=== PATIENT | female | born 1930 | race Caucasian/White ===

== ENCOUNTER → 2016-09-20 | Outpatient (CLI) | payer MEDICARE, OTHER ==
[~2016-09-20] MED LIST: ADAL20KI; CIPRPOW8 PO; CYCL0.05 EACHEYE; DOXA2TAB; DOXE1CAP; FEBU80TA; FOLI400T34 PO; HYDR-1421; LEVO125T66; LIDO5DIS40; LUTE15CA; MOME220A IN; OMEP40CA33; POLYSOL5 EACHEYE; PREG75CA PO; Patanol EACHEYE; SITA100T7; TEMA30CA5; TRADJENTA; ZOLP12.52 PO; plaquenil PO
[2016-09-20 16:49] LABS: Basophils # (auto) 0 uL; Basophils % (auto) 0.5 % (0.0-2.0); DEFINITIVE VIEW TRANSMISSION; Eosinophils # (auto) 0.1 uL; Eosinophils % (auto) 1.5 % (0.0-7.0); Hematocrit 36.1 % (36.0-46.0); Hemoglobin 11.4 g/dL (12.2-16.2); Lymphocytes # (auto) 1.1 uL; Lymphocytes % (auto) 23.8 % (10.0-50.0); Mean Corpuscular Hemoglobin 32.9 pg (28.0-32.0); Mean Corpuscular Hgb Conc. 31.7 g/dL (32.0-36.0); Mean Corpuscular Volume 103.6 fL (80.0-100.0); Mean Platelet Volume 6.8 fL (7.4-10.4); Monocytes # (auto) 0.3 uL; Monocytes % (auto) 6.8 % (0.0-12.0); Neutrophils # (auto) 3.3 uL; Neutrophils % (auto) 67.4 % (37.0-80.0); Platelet Count (auto) 204 10^3/uL (140-450); White Blood Cell 4.8 10^3/uL (4.4-10.8)
[2016-09-20 17:03] LABS: BUN/Creatinine Ratio 27.4; Bilirubin, Total 0.4 mg/dL (0.2-1.0); Potassium 4.2 mmol/L (3.5-5.1); Total Protein 6.8 g/dL (6.4-8.2)
== END | disposition home or self-care (01) ==
LOC: LAB 15:07
PROVIDERS: ATTEND Internal Medicine Cardiovascular Disease
DX: M06.9 Rheumatoid arthritis, unspecified (principal); M25.50 Pain in unspecified joint; D64.9 Anemia, unspecified; I10 Essential (primary) hypertension; Z79.899 Other long term (current) drug therapy
CPT/HCPCS: 36415; 80053; 83036; 85025; 85652; 86141

== ENCOUNTER → 2016-10-06 | Outpatient (CLI) | payer MEDICARE, OTHER | END | disposition home or self-care (01) | LOC: Rad HDHVI 14:03 | PROVIDERS: ATTEND Internal Medicine Cardiovascular Disease | DX: I11.0 Hypertensive heart disease with heart failure (principal); I34.2 Nonrheumatic mitral (valve) stenosis; I35.0 Nonrheumatic aortic (valve) stenosis | CPT/HCPCS: 93306 ==

== ENCOUNTER → 2017-01-02 | Outpatient (CLI) | payer MEDICARE, OTHER ==
[2017-01-02 15:35] VITALS: BP 155/57
[2017-01-02 16:55] VITALS: BP 143/50
== END | disposition home or self-care (01) ==
LOC: CHF HDHVI 15:32
PROVIDERS: ATTEND Internal Medicine Cardiovascular Disease
DX: I50.9 Heart failure, unspecified (principal); R07.9 Chest pain, unspecified; R29.6 Repeated falls
CPT/HCPCS: 93005; G0463

== ENCOUNTER → 2017-01-23 | Outpatient (CLI) | payer MEDICARE, OTHER | END | disposition home or self-care (01) | LOC: Rad HDHVI 15:54 | PROVIDERS: ATTEND Internal Medicine Cardiovascular Disease | DX: R51 Headache (principal) | CPT/HCPCS: 70450 ==

== ENCOUNTER → 2017-05-01 | Outpatient (CLI) | payer MEDICARE, OTHER ==
[2017-05-01 16:13] LABS: Basophils # (auto) 0 uL; Basophils % (auto) 0.3 % (0.0-2.0); CONDITION Y; DEFINITIVE SEE PRINTOUT; Eosinophils # (auto) 0 uL; Eosinophils % (auto) 0.5 % (0.0-7.0); Hematocrit 32.8 % (36.0-46.0); Hemoglobin 10.7 g/dL (12.2-16.2); Lymphocytes # (auto) 1.1 uL; Lymphocytes % (auto) 22.3 % (10.0-50.0); Mean Corpuscular Hemoglobin 34.6 pg (28.0-32.0); Mean Corpuscular Hgb Conc. 32.7 g/dL (32.0-36.0); Mean Corpuscular Volume 105.9 fL (80.0-100.0); Mean Platelet Volume 7.1 fL (7.4-10.4); Monocytes # (auto) 0.3 uL; Monocytes % (auto) 5.9 % (0.0-12.0); Neutrophils # (auto) 3.4 uL; Platelet Count (auto) 196 10^3/uL (140-450); Red Cell Distribution Width 16.5 % (11.6-16.0); White Blood Cell 4.8 10^3/uL (4.4-10.8)
[2017-05-01 16:32] LABS: Albumin 3.8 g/dL (3.4-5.0); BUN/Creatinine Ratio 28.8; Bilirubin, Total 0.4 mg/dL (0.2-1.0); Calcium 9.9 mg/dL (8.5-10.1); Potassium 5.1 mmol/L (3.5-5.1); Total Protein 6.7 g/dL (6.4-8.2)
== END | disposition home or self-care (01) ==
LOC: LAB 14:39
PROVIDERS: ATTEND Internal Medicine Cardiovascular Disease
DX: I25.10 Atherosclerotic heart disease of native coronary artery without angina pectoris (principal); I13.0 Hypertensive heart and chronic kidney disease with heart failure and stage 1 through stage 4 chronic kidney disease, or unspecified chronic kidney disease; I50.30 Unspecified diastolic (congestive) heart failure; N18.9 Chronic kidney disease, unspecified; R70.0 Elevated erythrocyte sedimentation rate; D64.9 Anemia, unspecified
CPT/HCPCS: 36415; 80053; 85025; 85652; 86141

== ENCOUNTER → 2017-06-20 | Outpatient (CLI) | payer MEDICARE, OTHER ==
[2017-06-20 16:28] LABS: Urine Bilirubin Negative (Negative); Urine Blood Negative /uL (Negative); Urine Color Colorless (Yellow); Urine Glucose Normal (Normal); Urine Ketone Negative (Negative); Urine Nitrite Negative (Negative); Urine Urobilinogen Normal (Negative)
[2017-06-20 16:35] LABS: Eosinophils # (auto) 0.1 uL; Hemoglobin 11.4 g/dL (12.2-16.2); Lymphocytes # (auto) 1.5 uL; Mean Platelet Volume 7.3 fL (6.9-10.8); Nucleated Red Blood Cells % 0.3 %
[2017-06-20 16:37] LABS: Basophils # (auto) 0.1 uL; Basophils % (auto) 0.8 % (0.0-2.0); Calcium 9.8 mg/dL (8.5-10.1); Hematocrit 34.4 % (36.0-46.0); Lymphocytes % (auto) 23.5 % (10.0-50.0); Mean Corpuscular Hemoglobin 35.5 pg (28.0-32.0); Mean Corpuscular Volume 107.4 fL (80.0-100.0); Monocytes # (auto) 0.3 uL; Monocytes % (auto) 5.3 % (0.0-12.0); Neutrophils # (auto) 4.4 uL; Neutrophils % (auto) 69.4 % (37.0-80.0); Platelet Count (auto) 150 10^3/uL (140-450); Potassium 4.8 mmol/L (3.5-5.1); Red Cell Distribution Width 15.4 % (11.8-14.3); White Blood Cell 6.3 10^3/uL (4.4-10.8)
[2017-06-20 19:39] LABS: Macrocytosis Moderate; Platelet Estimate Adequate
== END | disposition home or self-care (01) ==
LOC: Rad HDHVI 10:05
PROVIDERS: ATTEND Internal Medicine Cardiovascular Disease
DX: I10 Essential (primary) hypertension (principal); I25.10 Atherosclerotic heart disease of native coronary artery without angina pectoris; D64.9 Anemia, unspecified; R70.0 Elevated erythrocyte sedimentation rate; N39.0 Urinary tract infection, site not specified
CPT/HCPCS: 36415; 80048; 81003; 85025; 85652; 86141; 87086; 93306

== ENCOUNTER → 2017-07-12 | Outpatient (CLI) | payer MEDICARE, OTHER ==
[2017-07-12 13:29] LABS: Albumin 3.7 g/dL (3.4-5.0); Calcium 9.7 mg/dL (8.5-10.1)
[2017-07-12 13:37] LABS: BUN/Creatinine Ratio 53.2; Bilirubin, Total 0.3 mg/dL (0.2-1.0); Total Protein 6.7 g/dL (6.4-8.2)
[2017-07-12 14:16] LABS: Potassium 6.1 mmol/L (3.5-5.1)
== END | disposition home or self-care (01) ==
LOC: LAB 12:02
DX: I13.0 Hypertensive heart and chronic kidney disease with heart failure and stage 1 through stage 4 chronic kidney disease, or unspecified chronic kidney disease (principal); I50.9 Heart failure, unspecified; N18.9 Chronic kidney disease, unspecified; M71.9 Bursopathy, unspecified
CPT/HCPCS: 36415; 80053

== ENCOUNTER → 2017-07-13 | Outpatient (CLI) | payer MEDICARE, OTHER ==
[2017-07-13 11:55] VITALS: BP 120/63
== END | disposition home or self-care (01) ==
LOC: CHF HDHVI 11:54
PROVIDERS: ATTEND Internal Medicine Cardiovascular Disease
DX: E87.6 Hypokalemia (principal); R94.4 Abnormal results of kidney function studies
CPT/HCPCS: 36415; 82565; 84132; 84520; G0463

== ENCOUNTER → 2017-07-14 | Outpatient (CLI) | payer MEDICARE, OTHER ==
[~2017-07-14] MED LIST changes: +FUROSEMIDE 40 MG/4 ML VIAL IV ONE; +FUROSEMIDE 40 MG/4 ML VIAL ONE; +SODIUM CHLORIDE 0.9% 500 ML IV ONE
[2017-07-14 14:42] VITALS: BP 162/73
== END ==
LOC: CHF HDHVI 12:27
PROVIDERS: ATTEND Internal Medicine Cardiovascular Disease
DX: I50.9 Heart failure, unspecified (principal); N17.9 Acute kidney failure, unspecified
CPT/HCPCS: 96361; 96374; G0463; J1940; 96360; 96366; 96375

== ENCOUNTER → 2017-07-17 | Outpatient (CLI) | payer MEDICARE, OTHER ==
[~2017-07-17] MED LIST changes: -FUROSEMIDE 40 MG/4 ML VIAL IV ONE; -FUROSEMIDE 40 MG/4 ML VIAL ONE; -SODIUM CHLORIDE 0.9% 500 ML IV ONE
[2017-07-17 14:30] VITALS: BP 154/64
[2017-07-17 16:29] LABS: Basophils # (auto) 0 uL; Basophils % (auto) 0.6 % (0.0-2.0); Eosinophils # (auto) 0 uL; Eosinophils % (auto) 0.4 % (0.0-7.0); Hemoglobin 10.1 g/dL (12.2-16.2); Mean Corpuscular Hemoglobin 34.8 pg (28.0-32.0); Mean Corpuscular Hgb Conc. 32.6 g/dL (32.0-36.0); Mean Corpuscular Volume 106.7 fL (80.0-100.0); Monocytes # (auto) 0.4 uL; Monocytes % (auto) 8.1 % (0.0-12.0); Neutrophils # (auto) 3.7 uL; Neutrophils % (auto) 71.9 % (37.0-80.0); Nucleated Red Blood Cells % 0.2 %; Platelet Count (auto) 138 10^3/uL (140-450); Red Blood Cells 2.91 10^6/uL (4.0-5.20); Red Cell Distribution Width 15.8 % (11.8-14.3); White Blood Cell 5.2 10^3/uL (4.4-10.8)
[2017-07-17 16:42] LABS: Potassium 5.6 mmol/L (3.5-5.1)
== END | disposition home or self-care (01) ==
LOC: CHF HDHVI 14:31
PROVIDERS: ATTEND Internal Medicine Cardiovascular Disease
DX: I11.0 Hypertensive heart disease with heart failure (principal); I50.9 Heart failure, unspecified; D64.9 Anemia, unspecified; E87.5 Hyperkalemia
CPT/HCPCS: 36415; 80048; 85025; 93005; G0463

== ENCOUNTER → 2017-07-18 | Outpatient (CLI) | payer MEDICARE, OTHER ==
[~2017-07-18] VITALS: Ht 30.5 cm; Wt 0.5 kg
[~2017-07-18] MED LIST changes: +SODIUM POLYSTYRENE SULF 15GM/60ML SUSP ONE; +SODIUM POLYSTYRENE SULF 15GM/60ML SUSP PO ONE
[2017-07-18 10:40] VITALS: BP 129/60
[2017-07-18 11:00] VITALS: BP 129/59
== END | disposition home or self-care (01) ==
LOC: CHF HDHVI 10:33
PROVIDERS: ATTEND Internal Medicine Cardiovascular Disease
DX: I50.9 Heart failure, unspecified (principal)
CPT/HCPCS: G0463

== ENCOUNTER → 2017-07-19 | Outpatient (CLI) | payer MEDICARE, OTHER ==
[~2017-07-19] MED LIST changes: -SODIUM POLYSTYRENE SULF 15GM/60ML SUSP ONE; -SODIUM POLYSTYRENE SULF 15GM/60ML SUSP PO ONE
[2017-07-19 14:40] VITALS: BP 170/71
[2017-07-19 15:05] VITALS: BP 163/82
[2017-07-19 16:06] LABS: Potassium 4.7 mmol/L (3.5-5.1)
== END | disposition home or self-care (01) ==
LOC: CHF HDHVI 14:52
PROVIDERS: ATTEND Internal Medicine Cardiovascular Disease
DX: E87.6 Hypokalemia (principal); R94.4 Abnormal results of kidney function studies
CPT/HCPCS: 36415; 82565; 84132; 84520; G0463

== ENCOUNTER → 2017-08-14 | Outpatient (CLI) | payer MEDICARE, OTHER | END | disposition home or self-care (01) | LOC: CHF HDHVI 14:39 | PROVIDERS: ATTEND Internal Medicine Cardiovascular Disease | DX: G93.89 Other specified disorders of brain (principal); I67.2 Cerebral atherosclerosis; G31.89 Other specified degenerative diseases of nervous system | CPT/HCPCS: 70450 ==

== ENCOUNTER → 2017-09-13 | Outpatient (CLI) | payer MEDICARE, OTHER ==
[~2017-09-13] MED LIST changes: -LIDO5DIS40; +LIDO5DIS7
[2017-09-13 12:51] LABS: Basophils # (auto) 0 uL; Eosinophils # (auto) 0 uL; Eosinophils % (auto) 0.5 % (0.0-7.0); Lymphocytes # (auto) 0.9 uL; Lymphocytes % (auto) 17.3 % (10.0-50.0); Monocytes # (auto) 0.3 uL
[2017-09-13 12:53] LABS: Basophils % (auto) 0.5 % (0.0-2.0); Hematocrit 31.7 % (36.0-46.0); Hemoglobin 10.6 g/dL (12.2-16.2); Mean Corpuscular Hemoglobin 36.1 pg (28.0-32.0); Mean Corpuscular Hgb Conc. 33.3 g/dL (32.0-36.0); Mean Corpuscular Volume 108.3 fL (80.0-100.0); Monocytes % (auto) 5.2 % (0.0-12.0); Neutrophils % (auto) 76.5 % (37.0-80.0); Nucleated Red Blood Cells % 0.2 %; Platelet Count (auto) 135 10^3/uL (140-450); Red Blood Cells 2.92 10^6/uL (4.0-5.20); Red Cell Distribution Width 16.8 % (11.8-14.3); White Blood Cell 5.2 10^3/uL (4.4-10.8)
[2017-09-13 15:09] LABS: Albumin 3.9 g/dL (3.4-5.0); BUN/Creatinine Ratio 27.9; Bilirubin, Total 0.4 mg/dL (0.2-1.0); CRP High Sensitivity 0.33 mg/dL (< 0.3); Calcium 9.8 mg/dL (8.5-10.1); Potassium 4.9 mmol/L (3.5-5.1); Total Protein 6.8 g/dL (6.4-8.2)
== END | disposition home or self-care (01) ==
LOC: LAB 12:05
DX: I10 Essential (primary) hypertension (principal); M06.9 Rheumatoid arthritis, unspecified; E78.00 Pure hypercholesterolemia, unspecified; I70.0 Atherosclerosis of aorta; D64.9 Anemia, unspecified; Z79.899 Other long term (current) drug therapy
CPT/HCPCS: 36415; 80053; 85025; 85652; 86141

== ENCOUNTER → 2017-09-13 | Outpatient (CLI) | payer MEDICARE, OTHER ==
[~2017-09-13] MED LIST changes: +FUROSEMIDE 100 MG/10ML VIAL IV ONE; +FUROSEMIDE 40 MG/4 ML VIAL ONE; +POTASSIUM CHL 20 Meq TABLET PO ONE
[2017-09-13 16:53] VITALS: BP 132/60
== END | disposition home or self-care (01) ==
LOC: CHF HDHVI 16:26
PROVIDERS: ATTEND Internal Medicine Cardiovascular Disease
DX: I50.9 Heart failure, unspecified (principal); I25.10 Atherosclerotic heart disease of native coronary artery without angina pectoris
CPT/HCPCS: 96374; G0463; J1940

== ENCOUNTER → 2017-10-09 | Outpatient (CLI) | payer MEDICARE, OTHER ==
[~2017-10-09] MED LIST changes: +CYANOCOBALAMIN (B-12) 1000 MCG/1 ML VIAL IM ONE; +CYANOCOBALAMIN (B-12) 1000 MCG/1 ML VIAL ONE; -FUROSEMIDE 100 MG/10ML VIAL IV ONE; +FUROSEMIDE 20 MG/2 ML VIAL ONE
[2017-10-09 15:25] VITALS: BP 175/72
[2017-10-09] MEDS: FUROSEMIDE 20 MG/2 ML VIAL IV SCH (15:53)
[2017-10-09 16:30] VITALS: BP 185/78
== END | disposition home or self-care (01) ==
LOC: CHF HDHVI 15:24
PROVIDERS: ATTEND Internal Medicine Cardiovascular Disease
DX: I50.9 Heart failure, unspecified (principal); R60.0 Localized edema; R53.81 Other malaise; R53.83 Other fatigue; R53.1 Weakness
CPT/HCPCS: 96372; 96374; G0463; J1940; J3420

== ENCOUNTER → 2017-12-11 | Outpatient (CLI) | payer MEDICARE, OTHER ==
[~2017-12-11] MED LIST changes: -FUROSEMIDE 20 MG/2 ML VIAL ONE; -FUROSEMIDE 40 MG/4 ML VIAL ONE; -POTASSIUM CHL 20 Meq TABLET PO ONE
[2017-12-11 12:50] VITALS: BP 145/88
[2017-12-11 13:50] VITALS: BP 145/88
[2017-12-11 15:39] LABS: Basophils # (auto) 0 uL; Basophils % (auto) 0.5 % (0.0-2.0); Eosinophils # (auto) 0 uL; Lymphocytes # (auto) 0.7 uL; Mean Corpuscular Volume 106.9 fL (80.0-100.0); Neutrophils % (auto) 78.9 % (37.0-80.0)
[2017-12-11 15:41] LABS: Eosinophils % (auto) 0.9 % (0.0-7.0); Hematocrit 32.4 % (36.0-46.0); Hemoglobin 10.6 g/dL (12.2-16.2); Lymphocytes % (auto) 13.6 % (10.0-50.0); Mean Corpuscular Hemoglobin 35.1 pg (28.0-32.0); Mean Corpuscular Hgb Conc. 32.8 g/dL (32.0-36.0); Monocytes # (auto) 0.3 uL; Monocytes % (auto) 6.1 % (0.0-12.0); Neutrophils # (auto) 4.1 uL; Nucleated Red Blood Cells % 0.2 %; Platelet Count (auto) 167 10^3/uL (140-450); Red Blood Cells 3.03 10^6/uL (4.0-5.20); Red Cell Distribution Width 15.3 % (11.8-14.3); White Blood Cell 5.2 10^3/uL (4.4-10.8)
[2017-12-11 15:42] LABS: BUN/Creatinine Ratio 30.7; Calcium 9.9 mg/dL (8.5-10.1); Potassium 4.1 mmol/L (3.5-5.1); Urine Bacteria NONE SEEN /hpf (None Seen); Urine Blood Negative /uL (Negative); Urine Specific Gravity 1.019 (1.001-1.035); Urine WBC 44 /hpf (0 - 5)
[2017-12-11 15:59] VITALS: BP 153/64
== END | disposition home or self-care (01) ==
LOC: Rad HDHVI 12:19
PROVIDERS: ATTEND Internal Medicine Cardiovascular Disease
DX: D53.9 Nutritional anemia, unspecified (principal); R31.9 Hematuria, unspecified; I10 Essential (primary) hypertension; G31.9 Degenerative disease of nervous system, unspecified; G93.89 Other specified disorders of brain; I70.90 Unspecified atherosclerosis; M25.542 Pain in joints of left hand; Z91.81 History of falling
CPT/HCPCS: 36415; 70450; 73060; 80048; 81001; 83735; 85025; 87086; 96372; G0463; J3420

== ENCOUNTER → 2017-12-20 | Outpatient (CLI) | payer MEDICARE, OTHER ==
[~2017-12-20] MED LIST changes: -CYANOCOBALAMIN (B-12) 1000 MCG/1 ML VIAL IM ONE; -CYANOCOBALAMIN (B-12) 1000 MCG/1 ML VIAL ONE
[2017-12-20 14:50] VITALS: BP 134/64
[2017-12-20 15:10] VITALS: BP 145/71
== END | disposition home or self-care (01) ==
LOC: CHF HDHVI 14:53
PROVIDERS: ATTEND Internal Medicine Cardiovascular Disease
DX: Z48.02 Encounter for removal of sutures (principal); S01.81XA Laceration without foreign body of other part of head, initial encounter; X58.XXXA Exposure to other specified factors, initial encounter; Y93.89 Activity, other specified; Y92.89 Other specified places as the place of occurrence of the external cause; Y99.8 Other external cause status
CPT/HCPCS: G0463

== ENCOUNTER → 2018-01-26 | Outpatient (CLI) | payer MEDICARE, OTHER ==
[2018-01-26 16:21] LABS: Potassium 4.2 mmol/L (3.5-5.1)
[2018-01-26 17:09] LABS: BUN/Creatinine Ratio 47.2; Calcium 10.3 mg/dL (8.5-10.1)
== END | disposition home or self-care (01) ==
LOC: LAB 14:13
PROVIDERS: ATTEND Internal Medicine Cardiovascular Disease
DX: I10 Essential (primary) hypertension (principal); E78.00 Pure hypercholesterolemia, unspecified; M06.9 Rheumatoid arthritis, unspecified; Z79.899 Other long term (current) drug therapy
CPT/HCPCS: 36415; 80048

== ENCOUNTER → 2018-02-01 | Outpatient (CLI) | payer MEDICARE, OTHER ==
[2018-02-01 14:00] VITALS: BP 123/76
[2018-02-01 16:07] LABS: Potassium 4.4 mmol/L (3.5-5.1)
== END | disposition home or self-care (01) ==
LOC: CHF HDHVI 13:54
PROVIDERS: ATTEND Internal Medicine Cardiovascular Disease
DX: I13.0 Hypertensive heart and chronic kidney disease with heart failure and stage 1 through stage 4 chronic kidney disease, or unspecified chronic kidney disease (principal); N18.9 Chronic kidney disease, unspecified; I50.23 Acute on chronic systolic (congestive) heart failure; E78.00 Pure hypercholesterolemia, unspecified; M06.9 Rheumatoid arthritis, unspecified; Z79.899 Other long term (current) drug therapy
CPT/HCPCS: 36415; 82565; 84132; 84520; G0463

== ENCOUNTER → 2018-03-06 | Outpatient (CLI) | payer MEDICARE, OTHER ==
[2018-03-06 16:10] LABS: Albumin 3.2 g/dL (3.4-5.0); Potassium 4.2 mmol/L (3.5-5.1)
[2018-03-06 16:13] LABS: BUN/Creatinine Ratio 39.9; Bilirubin, Total 0.5 mg/dL (0.2-1.0); Total Protein 6.2 g/dL (6.4-8.2)
[2018-03-06 16:28] LABS: Basophils # (auto) 0 uL; Eosinophils # (auto) 0 uL; Hemoglobin 10.1 g/dL (12.2-16.2); Lymphocytes # (auto) 0.7 uL; Monocytes # (auto) 0.3 uL; Neutrophils # (auto) 3.1 uL; White Blood Cell 4.2 10^3/uL (4.4-10.8)
[2018-03-06 16:30] LABS: Basophils % (auto) 0.4 % (0.0-2.0); Eosinophils % (auto) 0.4 % (0.0-7.0); Hematocrit 29.6 % (36.0-46.0); Lymphocytes % (auto) 16.5 % (10.0-50.0); Mean Corpuscular Hemoglobin 36.2 pg (28.0-32.0); Mean Corpuscular Hgb Conc. 34.1 g/dL (32.0-36.0); Mean Corpuscular Volume 106.1 fL (80.0-100.0); Monocytes % (auto) 7.8 % (0.0-12.0); Neutrophils % (auto) 74.9 % (37.0-80.0); Nucleated Red Blood Cells % 0.2 %; Platelet Count (auto) 148 10^3/uL (140-450); Red Blood Cells 2.79 10^6/uL (4.0-5.20); Red Cell Distribution Width 15.6 % (11.8-14.3)
[2018-03-06 16:57] LABS: Urine Blood Negative /uL (Negative); Urine Specific Gravity 1.012 (1.001-1.035)
== END | disposition home or self-care (01) ==
LOC: LAB 14:04
PROVIDERS: ATTEND Internal Medicine Cardiovascular Disease
DX: I13.0 Hypertensive heart and chronic kidney disease with heart failure and stage 1 through stage 4 chronic kidney disease, or unspecified chronic kidney disease (principal); I50.23 Acute on chronic systolic (congestive) heart failure; N18.9 Chronic kidney disease, unspecified; E78.00 Pure hypercholesterolemia, unspecified; N39.0 Urinary tract infection, site not specified; D64.9 Anemia, unspecified
CPT/HCPCS: 36415; 80053; 81003; 85025; 87086

== ENCOUNTER → 2018-05-04 | Outpatient (CLI) | payer MEDICARE, OTHER ==
[2018-05-04 16:18] LABS: Basophils # (auto) 0 uL; Eosinophils # (auto) 0 uL
[2018-05-04 16:20] LABS: Albumin 3.7 g/dL (3.4-5.0); BUN/Creatinine Ratio 42.2; Basophils % (auto) 0.8 % (0.0-2.0); Bilirubin, Total 0.4 mg/dL (0.2-1.0); Calcium 9.6 mg/dL (8.5-10.1); Eosinophils % (auto) 0.7 % (0.0-7.0); Hematocrit 29.7 % (36.0-46.0); Lymphocytes # (auto) 1.3 uL; Lymphocytes % (auto) 31.5 % (10.0-50.0); Mean Corpuscular Hemoglobin 35.9 pg (28.0-32.0); Mean Corpuscular Hgb Conc. 33.5 g/dL (32.0-36.0); Monocytes # (auto) 0.2 uL; Monocytes % (auto) 6.1 % (0.0-12.0); Neutrophils # (auto) 2.4 uL; Neutrophils % (auto) 60.9 % (37.0-80.0); Nucleated Red Blood Cells % 0.6 %; Platelet Count (auto) 145 10^3/uL (140-450); Potassium 4.2 mmol/L (3.5-5.1); Red Blood Cells 2.78 10^6/uL (4.0-5.20); Red Cell Distribution Width 16.1 % (11.8-14.3); Total Protein 6.4 g/dL (6.4-8.2)
== END | disposition home or self-care (01) ==
LOC: LAB 11:29
PROVIDERS: ATTEND Internal Medicine Cardiovascular Disease
DX: D64.9 Anemia, unspecified (principal); I10 Essential (primary) hypertension
CPT/HCPCS: 36415; 80053; 85025

== ENCOUNTER → 2018-05-09 | Outpatient (CLI) | payer MEDICARE, OTHER ==
[2018-05-09 13:45] VITALS: BP 140/76
[2018-05-09 14:00] VITALS: BP 174/66
[2018-05-09 16:46] LABS: Basophils # (auto) 0 uL; Eosinophils # (auto) 0 uL; Eosinophils % (auto) 0.8 % (0.0-7.0); Hemoglobin 10.9 g/dL (12.2-16.2); Mean Corpuscular Volume 106.9 fL (80.0-100.0)
[2018-05-09 16:50] LABS: Basophils % (auto) 0.4 % (0.0-2.0); Hematocrit 32.7 % (36.0-46.0); Lymphocytes % (auto) 24.7 % (10.0-50.0); Mean Corpuscular Hemoglobin 35.6 pg (28.0-32.0); Mean Corpuscular Hgb Conc. 33.3 g/dL (32.0-36.0); Monocytes # (auto) 0.2 uL; Monocytes % (auto) 6.5 % (0.0-12.0); Neutrophils # (auto) 2.6 uL; Neutrophils % (auto) 67.6 % (37.0-80.0); Nucleated Red Blood Cells % 0.1 %; Platelet Count (auto) 141 10^3/uL (140-450); Red Blood Cells 3.06 10^6/uL (4.0-5.20); Red Cell Distribution Width 16.2 % (11.8-14.3); White Blood Cell 3.8 10^3/uL (4.4-10.8)
[2018-05-09 16:55] LABS: BUN/Creatinine Ratio 35.3; Calcium 10.3 mg/dL (8.5-10.1); Potassium 4.3 mmol/L (3.5-5.1)
== END | disposition home or self-care (01) ==
LOC: CHF HDHVI 13:36
PROVIDERS: ATTEND Internal Medicine Cardiovascular Disease
DX: D64.9 Anemia, unspecified (principal); I13.0 Hypertensive heart and chronic kidney disease with heart failure and stage 1 through stage 4 chronic kidney disease, or unspecified chronic kidney disease; N18.9 Chronic kidney disease, unspecified; I50.9 Heart failure, unspecified; R60.0 Localized edema
CPT/HCPCS: 36415; 80048; 85025; G0463

== ENCOUNTER → 2018-07-06 | Outpatient (CLI) | payer MEDICARE, OTHER | END | disposition home or self-care (01) | LOC: Rad HDHVI 12:59 | PROVIDERS: ATTEND Internal Medicine Cardiovascular Disease | DX: M47.892 Other spondylosis, cervical region (principal) | CPT/HCPCS: 72125 ==

== ENCOUNTER → 2018-07-10 | Outpatient (CLI) | payer MEDICARE, OTHER ==
[2018-07-10 16:08] LABS: Urine Blood Negative /uL (Negative); Urine Specific Gravity 1.012 (1.001-1.035)
== END | disposition home or self-care (01) ==
LOC: LAB 14:30
PROVIDERS: ATTEND Internal Medicine Cardiovascular Disease
DX: N39.0 Urinary tract infection, site not specified (principal)
CPT/HCPCS: 81003; 87086

== ENCOUNTER → 2018-08-13 | Outpatient (CLI) | payer MEDICARE, OTHER ==
[2018-08-13 16:06] LABS: Urine Blood Negative /uL (Negative); Urine Specific Gravity 1.022 (1.001-1.035)
[2018-08-13 16:19] LABS: Calcium 10.1 mg/dL (8.5-10.1); Potassium 4.6 mmol/L (3.5-5.1)
[2018-08-13 16:21] LABS: BUN/Creatinine Ratio 52.8
[2018-08-13 16:48] LABS: Basophils # (auto) 0 uL; Eosinophils # (auto) 0 uL; Hemoglobin 12.2 g/dL (12.2-16.2); Lymphocytes # (auto) 0.8 uL; Mean Corpuscular Hgb Conc. 32.9 g/dL (32.0-36.0); Monocytes # (auto) 0.3 uL; Red Blood Cells 3.42 10^6/uL (4.0-5.20)
[2018-08-13 16:50] LABS: Basophils % (auto) 0.3 % (0.0-2.0); Eosinophils % (auto) 0.3 % (0.0-7.0); Mean Corpuscular Hemoglobin 35.6 pg (28.0-32.0); Mean Corpuscular Volume 108.2 fL (80.0-100.0); Monocytes % (auto) 5.8 % (0.0-12.0); Neutrophils # (auto) 4.7 uL; Neutrophils % (auto) 80.6 % (37.0-80.0); Nucleated Red Blood Cells % 0.5 %; Platelet Count (auto) 165 10^3/uL (140-450); Red Cell Distribution Width 15.6 % (11.8-14.3); White Blood Cell 5.9 10^3/uL (4.4-10.8)
== END | disposition home or self-care (01) ==
LOC: LABCORP 12:13
PROVIDERS: ATTEND Internal Medicine Cardiovascular Disease
DX: I11.0 Hypertensive heart disease with heart failure (principal); I50.23 Acute on chronic systolic (congestive) heart failure; D64.9 Anemia, unspecified; E11.9 Type 2 diabetes mellitus without complications; N39.0 Urinary tract infection, site not specified
CPT/HCPCS: 36415; 80048; 81003; 83036; 83880; 85025; 87086

== ENCOUNTER 2018-09-12 13:25 | Inpatient (IN) | payer MEDICARE, OTHER | END 2018-09-21 16:35 | disposition home or self-care (01) | LOC: OVERFLOW 09-13 00:44 → CENTRAL 09-15 18:13 → ER 13:25 | DX: S00.83XA Contusion of other part of head, initial encounter (principal); J18.9 Pneumonia, unspecified organism; J44.0 Chronic obstructive pulmonary disease with (acute) lower respiratory infection; E86.0 Dehydration; J20.8 Acute bronchitis due to other specified organisms; Z90.710 Acquired absence of both cervix and uterus; R53.1 Weakness; I10 Essential (primary) hypertension; N18.3 Chronic kidney disease, stage 3 (moderate); M06.9 Rheumatoid arthritis, unspecified; D64.9 Anemia, unspecified; G89.4 Chronic pain syndrome ==

== ENCOUNTER → 2018-10-01 | Outpatient (CLI) | payer MEDICARE, OTHER ==
[~2018-10-01] MED LIST changes: +GABA-339 PO; -LIDO5DIS7; +LIDO5DIS7 SUBD; -TEMA30CA5; +TEMA30CA5 PO
== END | disposition home or self-care (01) ==
LOC: Rad HDHVI 13:43
PROVIDERS: ATTEND Internal Medicine Cardiovascular Disease
DX: M11.262 Other chondrocalcinosis, left knee (principal); M77.32 Calcaneal spur, left foot; M19.072 Primary osteoarthritis, left ankle and foot; M17.12 Unilateral primary osteoarthritis, left knee; M79.89 Other specified soft tissue disorders; Z91.81 History of falling
CPT/HCPCS: 73562; 73610

== ENCOUNTER → 2018-10-17 | Outpatient (CLI) | payer MEDICARE, OTHER ==
[2018-10-17 16:03] LABS: Basophils # (auto) 0.1 uL; Basophils % (auto) 1.2 % (0.0-2.0); Eosinophils # (auto) 0.1 uL; Eosinophils % (auto) 1.4 % (0.0-7.0); Hemoglobin 12.3 g/dL (12.2-16.2); Mean Corpuscular Hemoglobin 34.8 pg (28.0-32.0); Monocytes # (auto) 0.4 uL; Neutrophils # (auto) 3.2 uL; White Blood Cell 4.7 10^3/uL (4.4-10.8)
[2018-10-17 16:04] LABS: Hematocrit 38.1 % (36.0-46.0); Lymphocytes % (auto) 21.4 % (10.0-50.0); Mean Corpuscular Hgb Conc. 32.2 g/dL (32.0-36.0); Mean Corpuscular Volume 108.3 fL (80.0-100.0); Monocytes % (auto) 7.9 % (0.0-12.0); Neutrophils % (auto) 68.1 % (37.0-80.0); Nucleated Red Blood Cells % 0.2 %; Platelet Count (auto) 150 10^3/uL (140-450); Red Blood Cells 3.52 10^6/uL (4.0-5.20); Red Cell Distribution Width 16.9 % (11.8-14.3)
[2018-10-17 16:15] LABS: BUN/Creatinine Ratio 39.6; Calcium 9.9 mg/dL (8.5-10.1); Potassium 3.3 mmol/L (3.5-5.1)
[2018-10-17 16:17] LABS: Bilirubin, Total 0.4 mg/dL (0.2-1.0); Total Protein 7.3 g/dL (6.4-8.2)
== END | disposition home or self-care (01) ==
LOC: LAB 11:47
PROVIDERS: ATTEND Internal Medicine Cardiovascular Disease
DX: D64.9 Anemia, unspecified (principal); I12.9 Hypertensive chronic kidney disease with stage 1 through stage 4 chronic kidney disease, or unspecified chronic kidney disease; E11.22 Type 2 diabetes mellitus with diabetic chronic kidney disease; N18.9 Chronic kidney disease, unspecified
CPT/HCPCS: 36415; 80053; 85025

== ENCOUNTER → 2018-10-30 | Outpatient (CLI) | payer MEDICARE, OTHER ==
[~2018-10-30] MED LIST changes: +CYANOCOBALAMIN (B-12) 1000 MCG/1 ML VIAL IM ONE; +CYANOCOBALAMIN (B-12) 1000 MCG/1 ML VIAL ONE; +POTASSIUM CHL 10 Meq TABLET PO ONE; +POTASSIUM CHL 20 Meq TABLET PO ONE
[2018-10-30 14:55] VITALS: BP 140/59
--- NOTE | 2018-10-30 14:55 | NUR ---
CHF PT TO CHF CLINIC C/O NOT FEELING WELL, LE EDEMA, SKIN TEAR TO L HOLM .
--- NOTE | 2018-10-30 15:00 | NUR ---
CHF Clinic Provider Clinic Provider DR. SCHULTZ pt with new orders received and carried out. DRAW BUN CREAT, K,MG. BILAT LE UNNA BOOTS FOR EDEMA AND VIT B 12 INJECTION. POTASSIUM 20 MEQ PO. per MD order.
[2018-10-30 15:40] VITALS: BP 150/74
--- NOTE | 2018-10-30 15:40 | NUR ---
CHF Discharge Instructions See e-MAR for any mediations given with this visit. VIT B 12 1000MCG IM L DELTOID. Patient education given on disease process. Patient verbalized understanding. Previous labs reviewed. Patient discharged in stable condition with after care instructions and follow up appointment.F/U WITH DR. SCHULTZ NEXT WEEK.
[2018-10-30 16:06] LABS: Potassium 3.9 mmol/L (3.5-5.1)
[2018-10-30 16:07] LABS: Magnesium 2.4 mg/dL (1.6-2.6)
== END | disposition home or self-care (01) ==
LOC: CHF HDHVI 15:04
PROVIDERS: ATTEND Internal Medicine Cardiovascular Disease
DX: I25.10 Atherosclerotic heart disease of native coronary artery without angina pectoris (principal); I13.0 Hypertensive heart and chronic kidney disease with heart failure and stage 1 through stage 4 chronic kidney disease, or unspecified chronic kidney disease; E11.22 Type 2 diabetes mellitus with diabetic chronic kidney disease; N18.3 Chronic kidney disease, stage 3 (moderate); I50.22 Chronic systolic (congestive) heart failure; E87.6 Hypokalemia; R94.4 Abnormal results of kidney function studies; E83.40 Disorders of magnesium metabolism, unspecified; R53.83 Other fatigue; R53.81 Other malaise; I70.0 Atherosclerosis of aorta; J44.9 Chronic obstructive pulmonary disease, unspecified; E11.40 Type 2 diabetes mellitus with diabetic neuropathy, unspecified; E78.00 Pure hypercholesterolemia, unspecified; M19.072 Primary osteoarthritis, left ankle and foot; M17.12 Unilateral primary osteoarthritis, left knee; M06.9 Rheumatoid arthritis, unspecified; G89.4 Chronic pain syndrome; Z95.0 Presence of cardiac pacemaker; Z79.899 Other long term (current) drug therapy; Z90.710 Acquired absence of both cervix and uterus
CPT/HCPCS: 36415; 82565; 83735; 84132; 84520; 96372; G0463; J3420

== ENCOUNTER → 2019-02-19 | Outpatient (CLI) | payer MEDICARE, OTHER ==
[~2019-02-19] MED LIST changes: -CYANOCOBALAMIN (B-12) 1000 MCG/1 ML VIAL IM ONE; -CYANOCOBALAMIN (B-12) 1000 MCG/1 ML VIAL ONE; -POTASSIUM CHL 10 Meq TABLET PO ONE; -POTASSIUM CHL 20 Meq TABLET PO ONE
[2019-02-19 16:03] LABS: Eosinophils # (auto) 0 uL; Lymphocytes # (auto) 0.9 uL; Monocytes # (auto) 0.4 uL; Monocytes % (auto) 8.2 % (0.0-12.0); Nucleated Red Blood Cells % 0.3 %; White Blood Cell 4.3 10^3/uL (4.4-10.8)
[2019-02-19 16:05] LABS: Basophils # (auto) 0.1 uL; Basophils % (auto) 1.2 % (0.0-2.0); Eosinophils % (auto) 0.9 % (0.0-7.0); Hematocrit 36.6 % (36.0-46.0); Lymphocytes % (auto) 20.6 % (10.0-50.0); Mean Corpuscular Hemoglobin 34.3 pg (28.0-32.0); Mean Corpuscular Hgb Conc. 32.8 g/dL (32.0-36.0); Mean Corpuscular Volume 104.7 fL (80.0-100.0); Neutrophils % (auto) 69.1 % (37.0-80.0); Platelet Count (auto) 152 10^3/uL (140-450); Red Cell Distribution Width 18.2 % (11.8-14.3)
[2019-02-19 16:09] LABS: Free T4 (Free Thyroxine) 1.42 ng/dL (0.89-1.76)
[2019-02-19 16:44] LABS: Albumin 3.9 g/dL (3.4-5.0); Calcium 10.8 mg/dL (8.5-10.1); Potassium 3.8 mmol/L (3.5-5.1)
[2019-02-19 16:54] LABS: BUN/Creatinine Ratio 40.6; Bilirubin, Total 0.6 mg/dL (0.2-1.0); Total Protein 7.2 g/dL (6.4-8.2)
== END | disposition home or self-care (01) ==
LOC: Rad HDHVI 12:59
PROVIDERS: ATTEND Internal Medicine Cardiovascular Disease
DX: S43.002A Unspecified subluxation of left shoulder joint, initial encounter (principal); S43.001A Unspecified subluxation of right shoulder joint, initial encounter; M25.551 Pain in right hip; E03.9 Hypothyroidism, unspecified; E55.9 Vitamin D deficiency, unspecified; D51.9 Vitamin B12 deficiency anemia, unspecified; Z79.899 Other long term (current) drug therapy; X58.XXXA Exposure to other specified factors, initial encounter; Y93.89 Activity, other specified; Y92.89 Other specified places as the place of occurrence of the external cause; Y99.8 Other external cause status
CPT/HCPCS: 36415; 73030; 80053; 80061; 82306; 82607; 83036; 84439; 84443; 85025

== ENCOUNTER → 2019-02-20 | Outpatient (CLI) | payer MEDICARE, OTHER ==
[2019-02-20 15:50] LABS: Urine Blood Negative /uL (Negative); Urine Specific Gravity 1.012 (1.001-1.035)
== END | disposition home or self-care (01) ==
LOC: LAB 14:33
PROVIDERS: ATTEND Internal Medicine Cardiovascular Disease
DX: N39.0 Urinary tract infection, site not specified (principal)
CPT/HCPCS: 81003; 87086

== ENCOUNTER 2019-03-22 23:16 | Inpatient (IN) | payer MEDICARE, OTHER ==
[~2019-03-22] VITALS: Ht 139.7 cm; Wt 60.6 kg
[2019-03-23] MEDS ORDERED: HYDROcodone-ACET 5/325MG TAB PO ONE (03:30)
[2019-03-23] MEDS ORDERED: KETOROLAC TROMETH 15 mg/ml 1ML VL IV ONE (03:30)
[2019-03-23 04:16] LABS: Eosinophils # (auto) 0 uL; Hematocrit 37.6 % (36.0-46.0); Hemoglobin 12.4 g/dL (12.2-16.2); Monocytes # (auto) 0.5 uL; Neutrophils # (auto) 4.3 uL
[2019-03-23 04:18] LABS: Basophils # (auto) 0 uL; Basophils % (auto) 0.7 % (0.0-2.0); Eosinophils % (auto) 0.5 % (0.0-7.0); Lymphocytes # (auto) 0.9 uL; Lymphocytes % (auto) 15.7 % (10.0-50.0); Mean Corpuscular Hemoglobin 33.5 pg (28.0-32.0); Mean Corpuscular Hgb Conc. 32.9 g/dL (32.0-36.0); Monocytes % (auto) 7.9 % (0.0-12.0); Neutrophils % (auto) 75.2 % (37.0-80.0); Nucleated Red Blood Cells % 0.1 %; Platelet Count (auto) 155 10^3/uL (140-450); Red Blood Cells 3.68 10^6/uL (4.0-5.20); Red Cell Distribution Width 17.7 % (11.8-14.3); White Blood Cell 5.7 10^3/uL (4.4-10.8)
[2019-03-23 04:32] LABS: INR 0.94 (0.9-1.15); Partial Thromboplastin Time 24.1 sec (23.64-32.05)
[2019-03-23 04:40] LABS: Albumin 3.9 g/dL (3.4-5.0); Anion Gap 9 (5-15); Calcium 10.2 mg/dL (8.5-10.1); Carbon Dioxide 24 mmol/L (21-32); Chloride 111 mmol/L (98-107); Glucose 95 mg/dL (74-106); Potassium 3.7 mmol/L (3.5-5.1); Sodium 144 mmol/L (136-145)
[2019-03-23 04:44] LABS: Alanine Aminotransferase 20 U/L (13-56); Alkaline Phosphatase 268 U/L (45-117); Aspartate Aminotransferase 34 U/L (15-37); BUN/Creatinine Ratio 42.3; Bilirubin, Total 0.7 mg/dL (0.2-1.0); Blood Urea Nitrogen 58 mg/dL (7-18); GFR African American 47 mL/min; GFR Non-African American 39 mL/min; Total Protein 6.8 g/dL (6.4-8.2)
[2019-03-23] MEDS ORDERED: SODIUM CHLORIDE 0.9% 1,000 ML IV ONE (04:45)
[2019-03-23] MEDS ORDERED: LEVOFLOXACIN 500MG 100 ML IV ONE (04:45)
[2019-03-23] MEDS ORDERED: SODIUM CHLOR 0.9% PF (SALINE LOCK) 10ML VIAL/SYR IV SCH (06:00)
[2019-03-23] MEDS ORDERED: ENOXAPARIN SOD 60 MG/0.6 ML SYRINGE SC ONE (07:15)
[2019-03-23] MEDS ORDERED: hydrALAZINE HCL 20 MG/ML VL IV PRN (08:30)
[2019-03-23] MEDS ORDERED: NITROGLYCERIN 0.4 MG SL TAB SL PRN (08:30)
[2019-03-23] MEDS ORDERED: MORPHINE SULF INJ 2 MG/ML SYRINGE 1ML IV PRN (08:30)
[2019-03-23] MEDS ORDERED: ONDANSETRON HCL 4 MG/2 ML VIAL IV PRN (08:30)
[2019-03-23] MEDS ORDERED: ACETAMINOPHEN 500 MG TAB PO PRN (08:30)
[2019-03-23] MEDS: LEVOTHYROXINE SODIUM 50 MCG TAB PO SCH (08:35)
[2019-03-23] MEDS: MORPHINE SULF INJ 2 MG/ML SYRINGE 1ML IV PRN ×2 (09:21→19:40)
[2019-03-23] MEDS: CYCLOSPORINE 0.05% EACHEYE SCH ×2 (10:00→21:39)
[2019-03-23 10:30] VITALS: BP 149/80
--- NOTE | 2019-03-23 10:30 | NUR ---
ADMIT: Telemetry admit from TAYLOR ISAACS Karina admitted to Telemetry unit after SBAR received from CB Urena. Patient oriented to HIRAM BECKMAN, primary RN, unit, room, bed, and unit policies regarding patient care and visiting hours. Patient now on continuous telemetry monitoring, tele box #3 and telemetry reading on arrival to unit is Afib 104. Patient placed on bedside oxygen at 2L NC, weighed by bedscale and encouraged to call if they need something. PAVAN Huerta at bedside for safety. All questions and concerns addressed, patient verbalized understanding. Note: Addendum: 03/23/19 at 1738 by HIRAM BECKMAN RN CORRECTION: Patient was on tele box #2 and reading was SR 76 with a PAC
[2019-03-23] MEDS: DOCUSATE SOD 100 MG CAP PO SCH ×2 (12:02→21:37)
[2019-03-23] MEDS: PREGABALIN CAPSULE 75 MG CAP PO SCH (12:02)
[2019-03-23] MEDS: LISINOPRIL 10 MG TAB PO SCH (12:03)
[2019-03-23] MEDS: FAMOTIDINE 20 MG TAB PO SCH (12:03)
[2019-03-23] MEDS: METOPROLOL TARTRATE 25 MG TAB PO SCH ×2 (12:04→21:38)
[2019-03-23 13:00] VITALS: BP 120/66
[2019-03-23 13:35] VITALS: BP 149/80
[2019-03-23 17:00] VITALS: BP 122/67
--- NOTE | 2019-03-23 19:34 | NUR ---
CLOSING SHIFT NOTE: Report given to NOC Joy VIVAR. Endorsed care of patient.
[2019-03-23 21:35] VITALS: BP 117/52
[2019-03-23] MEDS: ATORVASTATIN 20 MG TAB PO SCH (21:38)
[2019-03-23] MEDS: HYDROcodone-ACET 5/325MG TAB PO PRN (21:39)
[2019-03-24] MEDS: MORPHINE SULF INJ 2 MG/ML SYRINGE 1ML IV PRN (02:08)
[2019-03-24 05:00] VITALS: BP 138/58
[2019-03-24 05:52] LABS: Basophils # (auto) 0 uL; Eosinophils % (auto) 1.3 % (0.0-7.0); Hemoglobin 11.3 g/dL (12.2-16.2); Red Cell Distribution Width 17.2 % (11.8-14.3)
[2019-03-24 06:01] LABS: Basophils % (auto) 0.7 % (0.0-2.0); Eosinophils # (auto) 0.1 uL; Hematocrit 33.5 % (36.0-46.0); Lymphocytes % (auto) 26.1 % (10.0-50.0); Mean Corpuscular Hemoglobin 34.5 pg (28.0-32.0); Mean Corpuscular Hgb Conc. 33.6 g/dL (32.0-36.0); Mean Corpuscular Volume 102.6 fL (80.0-100.0); Monocytes # (auto) 0.3 uL; Monocytes % (auto) 8.5 % (0.0-12.0); Neutrophils # (auto) 2.4 uL; Neutrophils % (auto) 63.4 % (37.0-80.0); Platelet Count (auto) 135 10^3/uL (140-450); Red Blood Cells 3.27 10^6/uL (4.0-5.20); White Blood Cell 3.9 10^3/uL (4.4-10.8)
[2019-03-24 06:08] LABS: INR 0.95 (0.9-1.15); Partial Thromboplastin Time 26.2 sec (23.64-32.05)
[2019-03-24 06:11] LABS: Anion Gap 9 (5-15); BUN/Creatinine Ratio 39.1; Blood Urea Nitrogen 43 mg/dL (7-18); Calcium 9.4 mg/dL (8.5-10.1); Carbon Dioxide 23 mmol/L (21-32); Chloride 113 mmol/L (98-107); GFR African American 61 mL/min; GFR Non-African American 50 mL/min; Glucose 90 mg/dL (74-106); Potassium 3.8 mmol/L (3.5-5.1); Sodium 145 mmol/L (136-145)
[2019-03-24] MEDS: LEVOTHYROXINE SODIUM 50 MCG TAB PO SCH (06:24)
--- NOTE | 2019-03-24 07:30 | NUR ---
OPENING SHIFT NOTE: Received report from NOC Joy VIVAR. Assumed care of patient. Patient is resting in bed, denies pain. Sitter at bedside for safety. Bed is in lowest position, rails x2 up and call light within reach. Updated on plan of care. Will continue to monitor.
[2019-03-24 08:00] VITALS: BP 126/65
[2019-03-24] MEDS: CYCLOSPORINE 0.05% EACHEYE SCH ×2 (10:00→22:00)
[2019-03-24] MEDS ORDERED: ASPirin 81 mg TAB PO SCH (10:00)
[2019-03-24] MEDS: ASPirin-EC 81 mg tab PO SCH (10:14)
[2019-03-24] MEDS: METOPROLOL TARTRATE 25 MG TAB PO SCH ×2 (10:16→21:48)
[2019-03-24] MEDS: DOCUSATE SOD 100 MG CAP PO SCH ×2 (10:16→22:00)
[2019-03-24] MEDS: PREGABALIN CAPSULE 75 MG CAP PO SCH (10:17)
[2019-03-24] MEDS: FAMOTIDINE 20 MG TAB PO SCH (10:17)
[2019-03-24] MEDS: LISINOPRIL 10 MG TAB PO SCH (10:17)
[2019-03-24] MEDS ORDERED: ALLO100T PO (10:21)
[2019-03-24 12:00] VITALS: BP 131/62
[2019-03-24] MEDS: HYDROcodone-ACET 5/325MG TAB PO PRN (15:58)
[2019-03-24 16:58] VITALS: BP 146/66
[2019-03-24] MEDS: ENSURE CLEAR Mixed Berry 8oz Carton PO SCH (18:00)
--- NOTE | 2019-03-24 18:30 | NUR ---
Patient began to exhibit personality changes. Patient getting very upset and angry with nursing staff. Patient stating that staff has been rude to her and wants to go home. Called patient's daughter, Dolores. Updated on patient status. Daughter to call patient and attempt to talk her down.
--- NOTE | 2019-03-24 19:30 | NUR ---
Opening Shift Note Assumed care of patient, awake, oriented x2-3. Cautious and suspicious but cooperative at this time. No S/S of distress/SOB or pain. Polanco draining to yellow urine. Reorientation done and updated on POC. Instructed to be NPO after MN for stress test tomorrow. Patient verbalized understanding. Bed in lowest position, sitter at bedside, will continue to monitor for changes Q1hr and PRN.
--- NOTE | 2019-03-24 19:36 | NUR ---
CLOSING SHIFT NOTE: Report given to NOC RNVaishali. Endorsed care of patient.
--- NOTE | 2019-03-24 20:30 | NUR ---
Patient's daughter Dolores called and updated on POC. Reviewed patient's medications at home.
[2019-03-24] MEDS: ATORVASTATIN 20 MG TAB PO SCH (21:45)
[2019-03-24 22:00] VITALS: BP 146/70
--- NOTE | 2019-03-25 00:30 | NUR ---
Patient complained of leg pain and requesting a sleeping pill too. Paged hospitalist, awaiting call back
[2019-03-25] MEDS ORDERED: FURO40TA4 PO (00:46)
[2019-03-25] MEDS ORDERED: ALPR0.5T7 PO (00:46)
[2019-03-25] MEDS ORDERED: DOXA1TAB42 PO (00:46)
[2019-03-25] MEDS ORDERED: GABA300C10 PO (00:46)
[2019-03-25] MEDS ORDERED: HYDR-4683 PO (00:46)
[2019-03-25] MEDS ORDERED: TEMA30CA PO (00:47)
[2019-03-25] MEDS ORDERED: TEMAZEPAM 15 MG CAP PO ONE (01:00)
[2019-03-25] MEDS ORDERED: GABAPENTIN 300 MG CAP PO ONE (01:00)
--- NOTE | 2019-03-25 01:00 | NUR ---
Hospitalist Tom called back, new orders received and read back. Will carry out order
--- NOTE | 2019-03-25 02:46 | NUR ---
Patient confused and wanted to get out of the bed. Reorientation done, maintained sitter at bedside
[2019-03-25 06:18] VITALS: BP 148/67
--- NOTE | 2019-03-25 06:57 | NUR ---
IV insertion IV access obtained, via clean sterile technique by inserting 20 gauge catheter at RFA. IV secured properly. No trauma to site. Patient tolerated well. NOTE: []
[2019-03-25] MEDS: LEVOTHYROXINE SODIUM 50 MCG TAB PO SCH (06:58)
--- NOTE | 2019-03-25 07:20 | NUR ---
Opening Shift Note Assumed care of patient, awake and alertx3, resting in bed. No S/S of distress/SOB, no pain noted or reported at this time. Respirations are even and unlabored on RA. Updated on POC and instructed to call for assistance as needed, pt. verbalized understanding. Bed locked in lowest position, side rails up x2, call light within reach. Will continue to monitor for changes Q1hr and PRN.
[2019-03-25] MEDS: ENSURE CLEAR Mixed Berry 8oz Carton PO SCH ×3 (08:00→17:17)
[2019-03-25 09:00] VITALS: BP 157/79
[2019-03-25] MEDS: FAMOTIDINE 20 MG TAB PO SCH (10:00)
[2019-03-25] MEDS: CYCLOSPORINE 0.05% EACHEYE SCH ×2 (10:00→22:00)
[2019-03-25] MEDS: METOPROLOL TARTRATE 25 MG TAB PO SCH ×2 (10:00→22:07)
[2019-03-25] MEDS: GABAPENTIN 300 MG CAP PO SCH ×2 (11:38→22:06)
[2019-03-25] MEDS: ASPirin-EC 81 mg tab PO SCH (11:39)
[2019-03-25] MEDS: ALLOPURINOL 100 MG TAB PO SCH (11:39)
[2019-03-25] MEDS: PREGABALIN CAPSULE 75 MG CAP PO SCH (11:40)
[2019-03-25] MEDS: DOCUSATE SOD 100 MG CAP PO SCH ×2 (11:40→22:06)
[2019-03-25] MEDS: LISINOPRIL 10 MG TAB PO SCH (11:40)
[2019-03-25] MEDS ORDERED: ADENOSINE 58 MG in GIVE UN-DILUTED 0 ML IV STA (12:36)
[2019-03-25 13:35] VITALS: BP 107/59
--- NOTE | 2019-03-25 14:56 | NUR ---
assessment Patient is a 88 year old female who is alert and answering appropriately. Patients caregiver Lidya is at bedside. Per Lidya she comes in 5 days per week 11 to 6pm M-F. Patient informed me she is on service with [employer] [facility]. Patients PCP is Dr Rowell. Patient informed me she has a fww, multiple canes, wheelchair, and shower chair for home use. Patient has an advanced directive and her daughter Tamika is POA. I informed patient she has a ss consult for lives alone , frequent falls, and does not feel safe at home. Patient informed me she does feel safe at home. Patient informed me she tripped over the leg of a chair and fell. Per patient and her daughter Tamika patient will return home on discharge and resume [employer]. Patient verbalized understanding and agreed to discharge plan home. Addendum: 03/26/19 at 1508 by Tiara HUFF Amended: Links added.
--- NOTE | 2019-03-25 16:00 | NUR ---
PT VERY TIRED AND SLEEPY. ATTEMPT P.T. TOMORROW.
[2019-03-25 17:50] VITALS: BP 134/74
--- NOTE | 2019-03-25 19:21 | NUR ---
CARE ENDORSED TO [facility] [employer] RN
--- NOTE | 2019-03-25 19:30 | NUR ---
Opening Shift Note Assumed care of patient, awake and alert, cooperative at this time. No S/S of distress/SOB or pain. Sitter at bedside. Instructed on POC and to call for assist PRN, patient verbalized understanding, will continue to monitor for changes Q1hr and PRN.
[2019-03-25 21:30] VITALS: BP 126/69
[2019-03-25] MEDS: ATORVASTATIN 20 MG TAB PO SCH (22:06)
[2019-03-25] MEDS ORDERED: TEMAZEPAM 15 MG CAP PO PRN (22:30)
[2019-03-26 05:38] VITALS: BP 137/76
[2019-03-26] MEDS: LEVOTHYROXINE SODIUM 50 MCG TAB PO SCH (06:44)
[2019-03-26 08:00] VITALS: BP 156/76
[2019-03-26 09:00] VITALS: BP 156/76
[2019-03-26] MEDS: ALLOPURINOL 100 MG TAB PO SCH (09:19)
[2019-03-26] MEDS: LISINOPRIL 10 MG TAB PO SCH (09:20)
[2019-03-26] MEDS: DOCUSATE SOD 100 MG CAP PO SCH ×2 (09:21→21:15)
[2019-03-26] MEDS: FAMOTIDINE 20 MG TAB PO SCH (09:21)
[2019-03-26] MEDS: METOPROLOL TARTRATE 25 MG TAB PO SCH ×2 (09:21→21:16)
[2019-03-26] MEDS: GABAPENTIN 300 MG CAP PO SCH ×2 (09:22→21:15)
[2019-03-26] MEDS: ASPirin-EC 81 mg tab PO SCH (09:22)
[2019-03-26] MEDS: PREGABALIN CAPSULE 75 MG CAP PO SCH (09:28)
[2019-03-26] MEDS: ENSURE CLEAR Mixed Berry 8oz Carton PO SCH ×3 (09:29→17:55)
[2019-03-26 10:27] LABS: Basophils # (auto) 0 uL; Basophils % (auto) 0.8 % (0.0-2.0); Eosinophils # (auto) 0 uL; Eosinophils % (auto) 0.8 % (0.0-7.0); Hematocrit 37.8 % (36.0-46.0); Hemoglobin 12.4 g/dL (12.2-16.2); Lymphocytes # (auto) 1.2 uL; Lymphocytes % (auto) 23.8 % (10.0-50.0); Mean Corpuscular Hemoglobin 33.1 pg (28.0-32.0); Mean Corpuscular Hgb Conc. 32.7 g/dL (32.0-36.0); Mean Corpuscular Volume 101.2 fL (80.0-100.0); Monocytes # (auto) 0.4 uL; Monocytes % (auto) 7.3 % (0.0-12.0); Neutrophils # (auto) 3.4 uL; Neutrophils % (auto) 67.3 % (37.0-80.0); Nucleated Red Blood Cells % 0.1 %; Platelet Count (auto) 156 10^3/uL (140-450); Red Blood Cells 3.74 10^6/uL (4.0-5.20); Red Cell Distribution Width 17.1 % (11.8-14.3)
[2019-03-26 10:49] LABS: Free T3 2.1 pg/mL (2.3-4.2); Free T4 (Free Thyroxine) 1.36 ng/dL (0.89-1.76)
[2019-03-26 11:06] LABS: BUN/Creatinine Ratio 27.2; Calcium 10.2 mg/dL (8.5-10.1); Potassium 3.8 mmol/L (3.5-5.1)
[2019-03-26] MEDS: HYDROcodone-ACET 5/325MG TAB PO PRN ×2 (12:09→19:03)
[2019-03-26] MEDS: CYCLOSPORINE 0.05% EACHEYE SCH ×2 (12:10→22:00)
[2019-03-26] MEDS ORDERED: MORPHINE SULF INJ 2 MG/ML SYRINGE 1ML IV PRN ×2 (13:00)
--- NOTE | 2019-03-26 13:41 | NUR ---
NUTRITION ASSESSMENT NOTES Please refer to link notes of nutrition screen form filed under the intervention section of the plan of care for further details. Est. Needs: 1150 kcal to 1450 kcal (20-25 kcal/kgBW), 41 gms to 59 gms pro (0.8-1.0 gms/kgBW). Will continue to monitor pertinent labs and reassess nutrient need prn Thank you. Addendum: 03/26/19 at [address] Amended: Links added.
--- NOTE | 2019-03-26 14:42 | NUR ---
re-assessment Per consult home health for safety eval, vitals, medication management, and PT. I spoke to patients daughter Tamika and she informed me that she prefers patient to return home on discharge and resume [facility] health. Per Tamika she will be here around 12pm tomorrow 03/27/19. Sarai social work specialist is satisfying consult. Addendum: 03/26/19 at 1445 by Tiara Johnson Amended: Links added.
[2019-03-26] MEDS ORDERED: BISACODYL 5 MG EC TAB PO ONE (14:45)
--- NOTE | 2019-03-26 15:24 | NUR ---
Received referral to [facility] for safety eval, vitals, medication management and Pt. Faxed chart to Alena at [facility]. Alena received fax. Called Alena to verify receipt of chart. Alena confirmed and stated they would resume care in 24-48 hrs. [facility] ([phone])
[2019-03-26 17:43] VITALS: BP 136/81
--- NOTE | 2019-03-26 19:40 | NUR ---
Opening Shift Note Assumed care of patient, awake, alert and cooperative at this time. No S/S of distress/SOB or pain. Sitter at bedside. Instructed on POC and to call for assist PRN, patient verbalized understanding, will continue to monitor for changes Q1hr and PRN.
[2019-03-26] MEDS: ATORVASTATIN 20 MG TAB PO SCH (21:15)
--- NOTE | 2019-03-26 22:40 | NUR ---
Determined the need to combine sitter. Transferred patient to . [facility] with sitter
[2019-03-27 01:24] VITALS: BP 129/58
[2019-03-27 05:00] VITALS: BP 140/76
--- NOTE | 2019-03-27 06:39 | NUR ---
Villalobos catheter dc'd Order to discontinue villalobos catheter. Villalobos dc'd with clean technique following deflation of balloon. Patient tolerated well with no complaints of pain. Continue care.
[2019-03-27] MEDS ORDERED: LEVOTHYROXINE SODIUM 112 MCG TAB PO SCH (07:00)
[2019-03-27] MEDS ORDERED: LEVOTHYROXINE SODIUM 25 MCG TAB PO SCH (07:00)
--- NOTE | 2019-03-27 07:50 | NUR ---
Opening Shift Note Assumed care of patient, awake and alert. No S/S of distress/SOB or pain. Sitter at bedside. able to urinate w/o any difficulty, no hematuria noted. will continue care.
[2019-03-27 08:00] VITALS: BP 134/73
[2019-03-27 09:09] VITALS: BP 134/73
[2019-03-27] MEDS: GABAPENTIN 300 MG CAP PO SCH (09:41)
[2019-03-27] MEDS: HYDROcodone-ACET 5/325MG TAB PO PRN (09:42)
[2019-03-27] MEDS: PREGABALIN CAPSULE 75 MG CAP PO SCH (09:42)
[2019-03-27] MEDS: LISINOPRIL 10 MG TAB PO SCH (09:42)
[2019-03-27] MEDS: METOPROLOL TARTRATE 25 MG TAB PO SCH (09:43)
[2019-03-27] MEDS: ASPirin-EC 81 mg tab PO SCH (09:47)
[2019-03-27] MEDS: DOCUSATE SOD 100 MG CAP PO SCH (09:47)
[2019-03-27] MEDS: ENSURE CLEAR Mixed Berry 8oz Carton PO SCH ×2 (09:48→12:45)
[2019-03-27] MEDS: CYCLOSPORINE 0.05% EACHEYE SCH (09:49)
[2019-03-27] MEDS ORDERED: LEV112T PO (10:00)
[2019-03-27] MEDS ORDERED: LISI10TA6 PO (10:03)
[2019-03-27] MEDS ORDERED: MET25T PO (10:03)
[2019-03-27] MEDS: ALLOPURINOL 100 MG TAB PO SCH (10:31)
[2019-03-27] MEDS: FAMOTIDINE 20 MG TAB PO SCH (10:31)
--- NOTE | 2019-03-27 10:50 | NUR ---
DR. CHANEL AT BEDSIDE.
[2019-03-27 12:34] VITALS: BP 134/73
--- NOTE | 2019-03-27 14:04 | NUR ---
Discharge instructions given as ordered. Encourage to follow up with PCP Dr Rowell on 04/10/19 @ 11: as instructed. All questions and concerns addressed. Patient verbalized understanding. Medication reconciliation form completed and copy given to patient. IVs removed with catheter intact, pressure dressing applied. Telemetry unit returned to [facility]. Patient taken to vehicle via wheelchair with all personal belongings, accompanied by staff and daughter. No distress noted at time of departure.
== END 2019-03-27 14:25 | disposition home health service (06) | DRG 280 ==
LOC: EDBD 23:16 → ER 23:16 → TELE 23:17 → TELE-WESTW 03-23 10:11
PROVIDERS: ADMIT Nurse Practitioner Acute Care; ATTEND Internal Medicine
DX: I21.4 Non-ST elevation (NSTEMI) myocardial infarction (principal); N17.0 Acute kidney failure with tubular necrosis; N18.4 Chronic kidney disease, stage 4 (severe); I13.10 Hypertensive heart and chronic kidney disease without heart failure, with stage 1 through stage 4 chronic kidney disease, or unspecified chronic kidney disease; E11.22 Type 2 diabetes mellitus with diabetic chronic kidney disease; E83.52 Hypercalcemia; E03.9 Hypothyroidism, unspecified; K57.30 Diverticulosis of large intestine without perforation or abscess without bleeding; M19.90 Unspecified osteoarthritis, unspecified site; S70.01XA Contusion of right hip, initial encounter; M81.0 Age-related osteoporosis without current pathological fracture; W01.0XXA Fall on same level from slipping, tripping and stumbling without subsequent striking against object, initial encounter; S00.83XA Contusion of other part of head, initial encounter; K59.00 Constipation, unspecified; F32.9 Major depressive disorder, single episode, unspecified; M54.5 Low back pain; R55 Syncope and collapse; Z79.84 Long term (current) use of oral hypoglycemic drugs; Y93.89 Activity, other specified; Z82.49 Family history of ischemic heart disease and other diseases of the circulatory system; Z83.3 Family history of diabetes mellitus; Z90.710 Acquired absence of both cervix and uterus; Z95.0 Presence of cardiac pacemaker; Y92.89 Other specified places as the place of occurrence of the external cause; Y99.8 Other external cause status
CPT/HCPCS: 36415; 51702; 70450; 70486; 71045; 72125; 74176; 78452; 80048; 80053; 82962; 83735; 84439; 84443; 84481; 84484; 84550; 85025; 85610; 85730; 86141; 87081; 93005; 93017; 93306; 94761; 96372; G0378; J0153

== ENCOUNTER → 2019-04-25 | Outpatient (CLI) | payer MEDICARE ==
[~2019-04-25] MED LIST changes: -ADAL20KI; +ALLO100T PO; +ALPR0.5T7 PO; -CIPRPOW8 PO; -DOXA2TAB; -DOXE1CAP; -FEBU80TA; -FOLI400T34 PO; +FURO40TA4 PO; -GABA-339 PO; +GABA300C10 PO; -HYDR-1421; +HYDR-4833 PO; +LEV112T PO; -LEVO125T66; -LIDO5DIS7 SUBD; +LISI10TA6 PO; -LUTE15CA; +MET25T PO; -MOME220A IN; -OMEP40CA33; +POLYSOL2 EACHEYE; -POLYSOL5 EACHEYE; -PREG75CA PO; -Patanol EACHEYE; -SITA100T7; +TEMA30CA PO; -TEMA30CA5 PO; -TRADJENTA; -plaquenil PO
[2019-04-25 12:21] LABS: Basophils # (auto) 0 uL; Eosinophils # (auto) 0 uL; Hemoglobin 11.8 g/dL (12.2-16.2); Monocytes # (auto) 0.3 uL; Neutrophils # (auto) 2.2 uL; Nucleated Red Blood Cells % 0.2 %; White Blood Cell 3.6 10^3/uL (4.4-10.8)
[2019-04-25 12:24] LABS: Basophils % (auto) 0.9 % (0.0-2.0); Eosinophils % (auto) 1.1 % (0.0-7.0); Hematocrit 35.9 % (36.0-46.0); Mean Corpuscular Hemoglobin 34.2 pg (28.0-32.0); Mean Corpuscular Volume 103.8 fL (80.0-100.0); Monocytes % (auto) 8.5 % (0.0-12.0); Neutrophils % (auto) 62.5 % (37.0-80.0); Platelet Count (auto) 148 10^3/uL (140-450); Red Blood Cells 3.46 10^6/uL (4.0-5.20); Red Cell Distribution Width 17.8 % (11.8-14.3)
[2019-04-25 12:39] LABS: Albumin 3.7 g/dL (3.4-5.0); Potassium 4.2 mmol/L (3.5-5.1)
[2019-04-25 12:46] LABS: BUN/Creatinine Ratio 26.3; Bilirubin, Total 0.5 mg/dL (0.2-1.0); Calcium 10.4 mg/dL (8.5-10.1); Total Protein 6.7 g/dL (6.4-8.2)
[2019-04-25 12:50] LABS: Free T4 (Free Thyroxine) 1.11 ng/dL (0.89-1.76)
== END | disposition home or self-care (01) ==
LOC: LAB 10:02
PROVIDERS: ATTEND Internal Medicine Cardiovascular Disease
DX: E11.9 Type 2 diabetes mellitus without complications (principal); K90.9 Intestinal malabsorption, unspecified; D51.9 Vitamin B12 deficiency anemia, unspecified; Z79.899 Other long term (current) drug therapy
CPT/HCPCS: 36415; 80053; 80061; 82306; 82607; 83036; 84439; 84443; 85025

== ENCOUNTER → 2019-04-26 | Outpatient (CLI) | payer MEDICARE ==
[2019-04-26 16:03] LABS: Urine Blood Negative /uL (Negative); Urine Specific Gravity 1.014 (1.001-1.035)
== END | disposition home or self-care (01) ==
LOC: LAB 14:09
PROVIDERS: ATTEND Internal Medicine Cardiovascular Disease
DX: N39.0 Urinary tract infection, site not specified (principal)
CPT/HCPCS: 81003; 87086

== ENCOUNTER → 2019-05-16 | Outpatient (CLI) | payer MEDICARE ==
[2019-05-16 11:56] LABS: Urine Blood Negative /uL (Negative); Urine Specific Gravity 1.008 (1.001-1.035)
== END | disposition home or self-care (01) ==
LOC: LAB 10:49
PROVIDERS: ATTEND Internal Medicine Cardiovascular Disease
DX: N39.0 Urinary tract infection, site not specified (principal)
CPT/HCPCS: 81003; 87086

== ENCOUNTER 2019-11-29 22:02 | Inpatient (IN) | payer MEDICARE, OTHER ==
[~2019-11-29] VITALS: Ht 144.8 cm; Wt 76.3 kg
[2019-11-29 23:00] LABS: Basophils # (auto) 0 10 ^3/uL (0-0.2); Eosinophils # (auto) 0 10 ^3/uL (0-0.8); Hemoglobin 11.6 g/dL (12.2-16.2); Monocytes # (auto) 0.2 10 ^3/uL (0-1.3); White Blood Cell 11.5 10^3/uL (4.4-10.8)
[2019-11-29 23:02] LABS: Basophils % (auto) 0.1 % (0.0-2.0); Hematocrit 35.8 % (36.0-46.0); Lymphocytes # (auto) 0.2 10 ^3/uL (0.4-5.4); Lymphocytes % (auto) 1.3 % (10.0-50.0); Mean Corpuscular Hemoglobin 35.1 pg (28.0-32.0); Mean Corpuscular Hgb Conc. 32.5 g/dL (32.0-36.0); Mean Corpuscular Volume 108.3 fL (80.0-100.0); Monocytes % (auto) 2.1 % (0.0-12.0); Neutrophils # (auto) 11.1 10 ^3/uL (1.6-8.6); Neutrophils % (auto) 96.5 % (37.0-80.0); Nucleated Red Blood Cells % 0.1 %; Platelet Count (auto) 77 10^3/uL (140-450); Red Blood Cells 3.31 10^6/uL (4.0-5.20); Red Cell Distribution Width 18.5 % (11.8-14.3)
[2019-11-29 23:18] LABS: Albumin 3.3 g/dL (3.4-5.0); Calcium 8.9 mg/dL (8.5-10.1); Potassium 3.9 mmol/L (3.5-5.1)
[2019-11-29 23:24] LABS: BUN/Creatinine Ratio 24.1; Total Protein 5.9 g/dL (6.4-8.2)
[2019-11-29] MEDS ORDERED: ACETAMINOPHEN 325 MG TAB PO ONE (23:30)
[2019-11-30] VITALS (8 sets, daily range): BP systolic 91–143; BP diastolic 52–92
[2019-11-30] MEDS ORDERED: DEXTROSE (50%) 50ML SYRG IV PRN (02:00)
[2019-11-30] MEDS ORDERED: MORPHINE SULF INJ 2 MG/ML SYRINGE 1ML IV PRN (02:00)
[2019-11-30] MEDS ORDERED: CLOPIDOGREL BISULFATE 75 MG TAB PO ONE (02:00)
[2019-11-30] MEDS ORDERED: DOCUSATE SOD 100 MG CAP PO PRN (02:00)
[2019-11-30] MEDS ORDERED: ASPirin 81 mg TAB PO ONE (02:00)
[2019-11-30] MEDS ORDERED: ACETAMINOPHEN 325 MG TAB PO PRN (02:00)
[2019-11-30] MEDS ORDERED: MORPHINE SULFATE 4 MG/ML SYR/VIAL IV PRN (02:00)
[2019-11-30] MEDS ORDERED: ONDANSETRON HCL 4 MG/2 ML VIAL IV PRN (02:00)
[2019-11-30] MEDS ORDERED: NITROGLYCERIN 0.4 MG SL TAB SL PRN (02:00)
[2019-11-30 02:14] LABS: Urine WBC None Seen /hpf (0 - 5)
[2019-11-30] MEDS ORDERED: GABAPENTIN 300 MG CAP PO ONE (02:45)
[2019-11-30 02:51] LABS: Urine Amorphous Crystal MOD /hpf (None Seen); Urine Bacteria FEW /hpf (None Seen); Urine Blood Negative /uL (Negative); Urine Specific Gravity 1.022 (1.001-1.035)
[2019-11-30] MEDS: cefTRIAXone 1GM/50ML D5W 50 ML IV SCH (03:11)
[2019-11-30] MEDS: ACCU-CHEK COMFORT CURVE STRIP VI SCH ×5 (04:37→20:00)
[2019-11-30] MEDS: InsuLIN REG 1unit/0.01ml Soln (100units/ml) SC SCH ×5 (04:38→20:00)
[2019-11-30] MEDS: LEVOTHYROXINE SODIUM 25 MCG TAB PO SCH (06:40)
[2019-11-30 07:22] LABS: BUN/Creatinine Ratio 25.3; Potassium 4.1 mmol/L (3.5-5.1)
[2019-11-30] MEDS ORDERED: APIXABAN 2.5 MG TAB PO SCH (10:00)
[2019-11-30] MEDS ORDERED: FUROSEMIDE 40 MG/4 ML VIAL IV SCH (10:00)
[2019-11-30] MEDS: ALLOPURINOL 300 MG TAB PO SCH (10:03)
[2019-11-30] MEDS: GABAPENTIN 300 MG CAP PO SCH ×2 (10:03→21:39)
[2019-11-30] MEDS ORDERED: VANCOMYCIN PER PHARMACY 0 MG IV SCH (11:45)
[2019-11-30] MEDS ORDERED: VANCOMYCIN 1GM/250ML 250 ML IV ONE ×2 (12:00→14:00)
[2019-11-30] MEDS: SODIUM CHLORIDE 0.9% 1,000 ML IV SCH ×2 (12:08→22:10)
[2019-11-30] MEDS: metroNIDAZOLE 500MG/100ML 100 ML IV SCH ×3 (12:09→21:39)
[2019-11-30 12:45] LABS: INR 1.12 (0.9-1.15); Partial Thromboplastin Time 29.2 sec (23.64-32.05)
[2019-11-30] MEDS: FUROSEMIDE 100 MG/10ML VIAL IV SCH (13:05)
[2019-11-30 20:06] LABS: Protein, Urine 12.5 mg/dL (0.0-11.9)
[2019-11-30] MEDS: traZODone HCL 50 MG TAB PO SCH (22:10)
[2019-11-30] MEDS: HYDROcodone-ACET 5/325MG TAB PO PRN (22:30)
[2019-12-01] MEDS: ACCU-CHEK COMFORT CURVE STRIP VI SCH ×6 (00:25→20:26)
[2019-12-01] MEDS: cefTRIAXone 1GM/50ML D5W 50 ML IV SCH (02:33)
[2019-12-01] MEDS: InsuLIN REG 1unit/0.01ml Soln (100units/ml) SC SCH ×6 (04:00→20:33)
[2019-12-01 04:41] VITALS: BP 108/64
[2019-12-01 05:47] LABS: Basophils # (auto) 0 10 ^3/uL (0-0.2); Eosinophils # (auto) 0 10 ^3/uL (0-0.8); Hematocrit 29.6 % (36.0-46.0); Hemoglobin 9.9 g/dL (12.2-16.2); Mean Corpuscular Hemoglobin 35.9 pg (28.0-32.0); Mean Corpuscular Hgb Conc. 33.5 g/dL (32.0-36.0); Monocytes # (auto) 0.2 10 ^3/uL (0-1.3); Red Blood Cells 2.77 10^6/uL (4.0-5.20); White Blood Cell 5.7 10^3/uL (4.4-10.8)
[2019-12-01 05:51] LABS: Basophils % (auto) 0.4 % (0.0-2.0); Lymphocytes # (auto) 0.5 10 ^3/uL (0.4-5.4); Lymphocytes % (auto) 8.1 % (10.0-50.0); Monocytes % (auto) 3.9 % (0.0-12.0); Neutrophils % (auto) 87.6 % (37.0-80.0); Nucleated Red Blood Cells % 0.2 %; Platelet Count (auto) 75 10^3/uL (140-450); Red Cell Distribution Width 18.3 % (11.8-14.3)
[2019-12-01 06:05] LABS: Albumin 2.5 g/dL (3.4-5.0); Calcium 8.6 mg/dL (8.5-10.1); Potassium 3.5 mmol/L (3.5-5.1)
[2019-12-01 06:08] LABS: % Iron Saturation 4.2 % (15-50)
[2019-12-01 06:14] LABS: Bilirubin, Total 0.5 mg/dL (0.2-1.0); CRP High Sensitivity 11.3 mg/dL (< 0.3); Total Protein 4.7 g/dL (6.4-8.2)
[2019-12-01] MEDS: metroNIDAZOLE 500MG/100ML 100 ML IV SCH ×3 (06:38→21:35)
[2019-12-01] MEDS: LEVOTHYROXINE SODIUM 25 MCG TAB PO SCH (06:39)
[2019-12-01] MEDS: SODIUM CHLORIDE 0.9% 1,000 ML IV SCH ×2 (08:52→17:04)
[2019-12-01 09:00] VITALS: BP 119/71
[2019-12-01] MEDS: GABAPENTIN 300 MG CAP PO SCH ×2 (09:51→21:32)
[2019-12-01] MEDS: ALLOPURINOL 300 MG TAB PO SCH (09:51)
[2019-12-01] MEDS: FUROSEMIDE 100 MG/10ML VIAL IV SCH (09:52)
[2019-12-01] MEDS ORDERED: VANCOMYCIN 750mg/250ml 250 ML IV ONE (11:00)
[2019-12-01] MEDS: HYDROcodone-ACET 5/325MG TAB PO PRN ×2 (12:06→21:33)
[2019-12-01 13:00] VITALS: BP 136/76
[2019-12-01 17:00] VITALS: BP 119/66
[2019-12-01 21:00] VITALS: BP 115/67
[2019-12-01] MEDS: traZODone HCL 50 MG TAB PO SCH (21:32)
[2019-12-02] VITALS (8 sets, daily range): BP systolic 114–158; BP diastolic 66–76
[2019-12-02] MEDS: ACCU-CHEK COMFORT CURVE STRIP VI SCH ×3 (00:05→09:15)
[2019-12-02] MEDS: cefTRIAXone 1GM/50ML D5W 50 ML IV SCH (03:06)
[2019-12-02] MEDS: InsuLIN REG 1unit/0.01ml Soln (100units/ml) SC SCH ×3 (04:00→09:15)
[2019-12-02] MEDS: SODIUM CHLORIDE 0.9% 1,000 ML IV SCH ×2 (04:26→13:45)
[2019-12-02] MEDS: metroNIDAZOLE 500MG/100ML 100 ML IV SCH ×3 (05:54→21:57)
[2019-12-02] MEDS: HYDROcodone-ACET 5/325MG TAB PO PRN (06:13)
[2019-12-02] MEDS: LEVOTHYROXINE SODIUM 25 MCG TAB PO SCH (06:34)
[2019-12-02] MEDS ORDERED: ADENOSINE 68 MG in GIVE UN-DILUTED 0 ML IV STA (08:19)
[2019-12-02 08:47] LABS: Ferritin 130.8 ng/mL (10-322); Free T4 (Free Thyroxine) 0.97 ng/dL (0.89-1.76)
[2019-12-02 08:48] LABS: Folate (Folic Acid) > 24.00 ng/mL (5.38-24)
[2019-12-02] MEDS: ALLOPURINOL 300 MG TAB PO SCH (09:12)
[2019-12-02] MEDS: FUROSEMIDE 100 MG/10ML VIAL IV SCH (09:13)
[2019-12-02] MEDS: GABAPENTIN 300 MG CAP PO SCH (09:13)
[2019-12-02 10:28] LABS: Basophils # (auto) 0 10 ^3/uL (0-0.2); Basophils % (auto) 0.5 % (0.0-2.0); Eosinophils # (auto) 0 10 ^3/uL (0-0.8); Eosinophils % (auto) 1.1 % (0.0-7.0); Hemoglobin 10.1 g/dL (12.2-16.2); Lymphocytes # (auto) 0.5 10 ^3/uL (0.4-5.4); Neutrophils # (auto) 2.9 10 ^3/uL (1.6-8.6); White Blood Cell 3.7 10^3/uL (4.4-10.8)
[2019-12-02 10:30] LABS: Hematocrit 30.3 % (36.0-46.0); Lymphocytes % (auto) 13.6 % (10.0-50.0); Mean Corpuscular Hemoglobin 35.7 pg (28.0-32.0); Mean Corpuscular Hgb Conc. 33.2 g/dL (32.0-36.0); Mean Corpuscular Volume 107.4 fL (80.0-100.0); Monocytes # (auto) 0.3 10 ^3/uL (0-1.3); Monocytes % (auto) 7.2 % (0.0-12.0); Neutrophils % (auto) 77.6 % (37.0-80.0); Nucleated Red Blood Cells % 0.2 %; Platelet Count (auto) 78 10^3/uL (140-450); Red Blood Cells 2.82 10^6/uL (4.0-5.20); Red Cell Distribution Width 18.1 % (11.8-14.3)
[2019-12-02 10:39] LABS: Calcium 8.8 mg/dL (8.5-10.1); Potassium 3.5 mmol/L (3.5-5.1)
[2019-12-02 10:45] LABS: Albumin 2.4 g/dL (3.4-5.0); BUN/Creatinine Ratio 27.4; Bilirubin, Total 0.5 mg/dL (0.2-1.0); Total Protein 4.9 g/dL (6.4-8.2)
[2019-12-02] MEDS ORDERED: VANCOMYCIN 1GM/250ML 250 ML IV SCH (11:00)
[2019-12-02 11:08] LABS: Hepatitis B Surface Antibody Negative
[2019-12-02] MEDS ORDERED: APIXABAN 2.5 MG TAB PO ONE (11:15)
[2019-12-02 11:47] LABS: Hepatitis A Total Antibody Negative
[2019-12-02 11:58] LABS: Hepatitis B Core Total AB Negative; Hepatitis B Surface Antigen Negative (Negative); Hepatitis C Antibody Negative (Negative)
[2019-12-02] MEDS ORDERED: DOCU-94 PO (12:37)
[2019-12-02] MEDS ORDERED: APIX2.5T PO (12:37)
[2019-12-02] MEDS ORDERED: HYDR-4833 PO (12:37)
[2019-12-02] MEDS ORDERED: TRAZ100T3 PO (12:37)
[2019-12-02] MEDS ORDERED: ALL300T PO (12:37)
[2019-12-02] MEDS ORDERED: METO-158 PO (12:37)
[2019-12-02] MEDS ORDERED: OMEP20TA PO (12:37)
[2019-12-02] MEDS ORDERED: FLUT100I IN (12:37)
[2019-12-02] MEDS ORDERED: LIDO5DIS21 TOP (12:37)
[2019-12-02] MEDS ORDERED: GABA-339 PO (12:37)
[2019-12-02] MEDS ORDERED: LEVO125T66 PO (12:37)
[2019-12-02] MEDS ORDERED: AMIO200T33 PO (12:37)
[2019-12-02] MEDS ORDERED: POLYSOL2 EACHEYE (12:38)
[2019-12-02] MEDS: HYDROcodone-ACET 10/325MG TAB PO PRN ×2 (15:46→23:04)
[2019-12-02] MEDS: guaiFENesin-DM 100/10mg/5ml SYR PO PRN (16:21)
[2019-12-02] MEDS: ALBUTEROL SULF 2.5 MG/0.5ML(0.5%) NEB SOLN NEB PRN (16:54)
[2019-12-02] MEDS ORDERED: ASPI-404 PO (17:17)
[2019-12-02] MEDS ORDERED: LUTE6TAB2 PO (17:17)
[2019-12-02] MEDS ORDERED: POM NEB (17:17)
[2019-12-02] MEDS ORDERED: FOLI1TAB6 PO (17:17)
[2019-12-02] MEDS ORDERED: PRE1T PO (17:17)
[2019-12-02] MEDS ORDERED: BENZ100C97 PO (17:17)
[2019-12-02] MEDS ORDERED: LORA-622 PO (17:17)
[2019-12-02] MEDS ORDERED: FUROSEMIDE 100 MG/10ML VIAL IV ONE (18:15)
[2019-12-02] MEDS: MAGNESIUM SULFATE 1GM/100ML 100 ML IV SCH ×2 (18:39→20:23)
[2019-12-02] MEDS: SACUBITRIL-VALSARTAN 24mg/26mg TAB PO SCH (21:57)
[2019-12-02] MEDS: traZODone HCL 50 MG TAB PO SCH (21:57)
[2019-12-02] MEDS: FAMOTIDINE (10MG/ML) 2ML VL IV SCH (21:57)
[2019-12-02] MEDS: CARVEDILOL 3.125 MG TAB PO SCH (21:58)
[2019-12-03] MEDS: SODIUM CHLORIDE 0.9% 1,000 ML IV SCH ×3 (01:30→19:45)
[2019-12-03] MEDS: cefTRIAXone 1GM/50ML D5W 50 ML IV SCH (02:55)
[2019-12-03 05:00] VITALS: BP 120/65
[2019-12-03] MEDS: metroNIDAZOLE 500MG/100ML 100 ML IV SCH ×3 (06:15→22:11)
[2019-12-03] MEDS: LEVOTHYROXINE SODIUM 25 MCG TAB PO SCH (06:42)
[2019-12-03 06:45] LABS: Basophils # (auto) 0 10 ^3/uL (0-0.2); Eosinophils # (auto) 0 10 ^3/uL (0-0.8); Hemoglobin 11.5 g/dL (12.2-16.2); Lymphocytes # (auto) 0.6 10 ^3/uL (0.4-5.4); Monocytes # (auto) 0.3 10 ^3/uL (0-1.3); Monocytes % (auto) 8.4 % (0.0-12.0); Neutrophils # (auto) 2.4 10 ^3/uL (1.6-8.6); Neutrophils % (auto) 70.8 % (37.0-80.0); Nucleated Red Blood Cells % 0.2 %
[2019-12-03 06:47] LABS: Basophils % (auto) 0.7 % (0.0-2.0); Hematocrit 34.2 % (36.0-46.0); Lymphocytes % (auto) 19.1 % (10.0-50.0); Mean Corpuscular Hemoglobin 35.7 pg (28.0-32.0); Mean Corpuscular Hgb Conc. 33.6 g/dL (32.0-36.0); Mean Corpuscular Volume 106.4 fL (80.0-100.0); Platelet Count (auto) 88 10^3/uL (140-450); Red Blood Cells 3.21 10^6/uL (4.0-5.20); Red Cell Distribution Width 17.3 % (11.8-14.3); White Blood Cell 3.4 10^3/uL (4.4-10.8)
[2019-12-03 07:02] LABS: BUN/Creatinine Ratio 27.4; Calcium 8.9 mg/dL (8.5-10.1); INR 1.07 (0.9-1.15); Partial Thromboplastin Time 31.3 sec (23.64-32.05); Potassium 3.3 mmol/L (3.5-5.1)
[2019-12-03] MEDS: APIXABAN 2.5 MG TAB PO SCH (07:14)
[2019-12-03] MEDS: FUROSEMIDE 100 MG/10ML VIAL IV SCH ×2 (07:23→08:55)
[2019-12-03] MEDS: guaiFENesin-DM 100/10mg/5ml SYR PO PRN ×2 (08:54→17:15)
[2019-12-03] MEDS: SACUBITRIL-VALSARTAN 24mg/26mg TAB PO SCH (08:55)
[2019-12-03] MEDS: ALLOPURINOL 300 MG TAB PO SCH (08:55)
[2019-12-03] MEDS: FAMOTIDINE (10MG/ML) 2ML VL IV SCH (08:55)
[2019-12-03] MEDS: GABAPENTIN 300 MG CAP PO SCH ×2 (08:56→22:11)
[2019-12-03] MEDS: CARVEDILOL 3.125 MG TAB PO SCH ×2 (08:57→22:13)
[2019-12-03] MEDS: HYDROcodone-ACET 10/325MG TAB PO PRN (08:59)
[2019-12-03] MEDS ORDERED: APIXABAN 2.5 MG TAB PO SCH (10:00)
[2019-12-03] MEDS: ALBUTEROL SULF 2.5 MG/0.5ML(0.5%) NEB SOLN NEB PRN (10:58)
[2019-12-03] MEDS ORDERED: POTASSIUM CHL 20 Meq TABLET PO ONE (11:00)
[2019-12-03] MEDS ORDERED: AMIODARONE HCL 200 MG TAB PO ONE (11:00)
[2019-12-03] MEDS ORDERED: ALPRAZolam 0.5 MG TAB PO PRN (11:30)
[2019-12-03] MEDS ORDERED: IODIXANOL 320MG/ML 100ML BTL IV ONE (11:54)
[2019-12-03] MEDS ORDERED: LIDOCAINE 2%HCL (LOCAL ANESTH.) INJ 20ML MDV ONE (11:55)
[2019-12-03] MEDS ORDERED: SODIUM CHL 0.9% 0 ML ONE (12:13)
[2019-12-03] MEDS ORDERED: MIDAZOLAM HCL 1MG/1ML-2 ML VIAL ONE (12:13)
[2019-12-03] MEDS ORDERED: ANGIOMAX 250 MG VIAL IV ONE (12:13)
[2019-12-03] MEDS ORDERED: fentaNYL CITRATE 100 MCG/2 ML VL ONE (12:13)
[2019-12-03] MEDS ORDERED: HEPARIN SODIUM (PORCINE) 5000 UNITS/ML 1ML VIAL ONE (12:21)
[2019-12-03] MEDS ORDERED: VERAPAMIL 2.5MG/ML INJ 2ML VIAL IV ONE (12:21)
[2019-12-03] MEDS ORDERED: diphenhdrAMINE HCL 50 MG/1 ML VL ONE (12:36)
[2019-12-03 12:57] VITALS: BP 128/76
[2019-12-03] MEDS ORDERED: ALPRAZolam 0.5 MG TAB PO SCH (14:00)
[2019-12-03 16:58] VITALS: BP 122/70
[2019-12-03] MEDS: traZODone HCL 50 MG TAB PO SCH (22:11)
[2019-12-03 23:09] VITALS: BP 132/75
[2019-12-04] MEDS: guaiFENesin-DM 100/10mg/5ml SYR PO PRN (03:05)
[2019-12-04] MEDS: cefTRIAXone 1GM/50ML D5W 50 ML IV SCH (03:05)
[2019-12-04] MEDS: HYDROcodone-ACET 10/325MG TAB PO PRN (03:31)
[2019-12-04] MEDS: SODIUM CHLORIDE 0.9% 1,000 ML IV SCH ×2 (04:54→17:29)
[2019-12-04 05:16] VITALS: BP 116/61
[2019-12-04] MEDS: LEVOTHYROXINE SODIUM 25 MCG TAB PO SCH (06:00)
[2019-12-04] MEDS: metroNIDAZOLE 500MG/100ML 100 ML IV SCH ×2 (06:00→14:11)
[2019-12-04 08:00] VITALS: BP 125/64
[2019-12-04] MEDS ORDERED: AMIODARONE HCL 200 MG TAB PO SCH (10:00)
[2019-12-04] MEDS: ALLOPURINOL 300 MG TAB PO SCH (10:50)
[2019-12-04] MEDS: FAMOTIDINE (10MG/ML) 2ML VL IV SCH (10:50)
[2019-12-04] MEDS: CARVEDILOL 3.125 MG TAB PO SCH (10:51)
[2019-12-04] MEDS: GABAPENTIN 300 MG CAP PO SCH (10:52)
[2019-12-04] MEDS: APIXABAN 2.5 MG TAB PO SCH (10:52)
[2019-12-04] MEDS: FUROSEMIDE 100 MG/10ML VIAL IV SCH (10:53)
[2019-12-04 12:00] VITALS: BP 119/58
[2019-12-04 16:51] VITALS: BP 146/62
[2019-12-04] MEDS ORDERED: GABAPENTIN 300 MG CAP PO SCH (22:00)
== END 2019-12-04 19:40 | disposition home or self-care (01) | DRG 871 ==
LOC: EDBD 22:02 → ER 22:04 → EDUNIT# 22:05 → TELE-WESTW 22:05
PROVIDERS: ADMIT Hospitalist; ATTEND Family Medicine
PROC: 4A023N7 Measurement of Cardiac Sampling and Pressure, Left Heart, Percutaneous Approach (ICD-10-PCS; principal; 2019-12-03)
PROC: B215YZZ Fluoroscopy of Left Heart using Other Contrast (ICD-10-PCS; 2019-12-03)
PROC: B211YZZ Fluoroscopy of Multiple Coronary Arteries using Other Contrast (ICD-10-PCS; 2019-12-03)
DX: A41.9 Sepsis, unspecified organism (principal); I50.23 Acute on chronic systolic (congestive) heart failure; N17.9 Acute kidney failure, unspecified; I13.0 Hypertensive heart and chronic kidney disease with heart failure and stage 1 through stage 4 chronic kidney disease, or unspecified chronic kidney disease; K81.2 Acute cholecystitis with chronic cholecystitis; B95.61 Methicillin susceptible Staphylococcus aureus infection as the cause of diseases classified elsewhere; E11.22 Type 2 diabetes mellitus with diabetic chronic kidney disease; M88.88 Osteitis deformans of other bones; M88.1 Osteitis deformans of vertebrae; E86.0 Dehydration; M88.9 Osteitis deformans of unspecified bone; M19.90 Unspecified osteoarthritis, unspecified site; E11.65 Type 2 diabetes mellitus with hyperglycemia; Z86.73 Personal history of transient ischemic attack (TIA), and cerebral infarction without residual deficits; Z95.0 Presence of cardiac pacemaker; Z82.61 Family history of arthritis; Z83.3 Family history of diabetes mellitus; Z82.49 Family history of ischemic heart disease and other diseases of the circulatory system; Z82.3 Family history of stroke; Z79.4 Long term (current) use of insulin
CPT/HCPCS: 36415; 70450; 71045; 72131; 74176; 76705; 78452; 80048; 80053; 80202; 81001; 82565; 82570; 82607; 82668; 82728; 82746; 82962; 83036; 83540; 83550; 83605; 83615; 83735; 84156; 84300; 84439; 84443; 84484; 85025; 85045; 85610; 85652; 85730; 86038; 86141; 86431; 86704; 86706; 86708; 86803; 86850; 86900; 86901; 87040; 87077; 87081; 87186; 87340; 87804; 93005; 93017; 93306; 94640; 96365; 96367; 96375; 99152; 99153; G0378; J0153; J0696; J1815; J2250; J2405; J3490; Q9967

== ENCOUNTER 2020-02-07 03:11 | Inpatient (IN) | payer MEDICARE, OTHER ==
[~2020-02-07] VITALS: Ht 139.7 cm; Wt 68.5 kg
[~2020-02-07 03:11] MED LIST changes: +ALL300T PO; -ALLO100T PO; -ALPR0.5T7 PO; +AMIO200T33 PO; +APIX2.5T PO; +ASPI-404 PO; +BENZ100C97 PO; -CYCL0.05 EACHEYE; +DOCU-94 PO; +FLUT100I IN; +FOLI1TAB6 PO; -FURO40TA4 PO; +GABA-339 PO; -GABA300C10 PO; -LEV112T PO; +LEVO125T66 PO; +LIDO5DIS21 TOP; -LISI10TA6 PO; +LORA-622 PO; +LUTE6TAB2 PO; -MET25T PO; +METO-158 PO; +OMEP20TA PO; +POM NEB; +PRE1T PO; -TEMA30CA PO; +TRAZ100T3 PO; -ZOLP12.52 PO
[2020-02-07] MEDS ORDERED: GABAPENTIN 300 MG CAP PO ONE (04:15)
[2020-02-07] MEDS ORDERED: HYDROcodone-ACET 5/325MG TAB PO ONE (04:15)
[2020-02-07 04:30] LABS: Basophils # (auto) 0 10 ^3/uL (0-0.2); Eosinophils # (auto) 0 10 ^3/uL (0-0.8); Eosinophils % (auto) 0.7 % (0.0-7.0); Mean Corpuscular Hgb Conc. 31.6 g/dL (32.0-36.0); Monocytes # (auto) 0.3 10 ^3/uL (0-1.3)
[2020-02-07 04:32] LABS: Basophils % (auto) 0.8 % (0.0-2.0); Hematocrit 30.9 % (36.0-46.0); Hemoglobin 9.8 g/dL (12.2-16.2); Lymphocytes # (auto) 0.6 10 ^3/uL (0.4-5.4); Lymphocytes % (auto) 21.5 % (10.0-50.0); Mean Corpuscular Hemoglobin 35.6 pg (28.0-32.0); Mean Corpuscular Volume 112.6 fL (80.0-100.0); Monocytes % (auto) 8.7 % (0.0-12.0); Neutrophils % (auto) 68.3 % (37.0-80.0); Nucleated Red Blood Cells % 0.4 %; Platelet Count (auto) 92 10^3/uL (140-450); Red Blood Cells 2.74 10^6/uL (4.0-5.20)
[2020-02-07 04:47] LABS: INR 1.06 (0.9-1.15); Partial Thromboplastin Time 26.1 sec (23.64-32.05)
[2020-02-07 04:50] LABS: Albumin 3.3 g/dL (3.4-5.0); Anion Gap 4 (5-15); Blood Alcohol < 3.0 mg/dL (0-5); Blood Urea Nitrogen 22 mg/dL (7-18); Calcium 9.2 mg/dL (8.5-10.1); Carbon Dioxide 28 mmol/L (21-32); Chloride 108 mmol/L (98-107); Glucose 93 mg/dL (74-106); Magnesium 1.7 mg/dL (1.6-2.6); Potassium 4.9 mmol/L (3.5-5.1); Sodium 140 mmol/L (136-145)
[2020-02-07 04:55] LABS: Alanine Aminotransferase 15 U/L (13-56); Alkaline Phosphatase 172 U/L (45-117); Aspartate Aminotransferase 34 U/L (15-37); BUN/Creatinine Ratio 16.7; Bilirubin, Total 0.7 mg/dL (0.2-1.0); GFR African American 49 mL/min; GFR Non-African American 40 mL/min; Total Protein 6.2 g/dL (6.4-8.2)
[2020-02-07 05:50] LABS: Urine Bacteria FEW /hpf (None Seen); Urine Blood Negative /uL (Negative); Urine Hyaline Cast FEW /lpf (0 - 2); Urine Mucus FEW (None Seen); Urine Specific Gravity 1.021 (1.001-1.035); Urine WBC 6 /hpf (0 - 5)
[2020-02-07] MEDS ORDERED: POLYETHYLENE GLYCOL PROPYLENE EACHEYE SCH (07:00)
[2020-02-07] MEDS ORDERED: ACETAMINOPHEN 325 MG TAB PO PRN (07:00)
[2020-02-07] MEDS ORDERED: DOCUSATE SOD 100 MG CAP PO PRN (07:00)
[2020-02-07] MEDS ORDERED: HYDROcodone-ACET 5/325MG TAB PO PRN (07:00)
[2020-02-07] MEDS ORDERED: ONDANSETRON HCL 4 MG/2 ML VIAL IV PRN (07:00)
[2020-02-07] MEDS ORDERED: ARTIFICIAL TEARS 15ml EACHEYE SCH (07:45)
[2020-02-07 07:46] LABS: Basophils # (auto) 0 10 ^3/uL (0-0.2); Eosinophils # (auto) 0 10 ^3/uL (0-0.8); Hemoglobin 10.8 g/dL (12.2-16.2); Lymphocytes # (auto) 0.7 10 ^3/uL (0.4-5.4); Monocytes # (auto) 0.3 10 ^3/uL (0-1.3); Red Cell Distribution Width 18.7 % (11.8-14.3); White Blood Cell 3.5 10^3/uL (4.4-10.8)
[2020-02-07 07:49] LABS: Basophils % (auto) 0.6 % (0.0-2.0); Eosinophils % (auto) 0.6 % (0.0-7.0); Hematocrit 33.2 % (36.0-46.0); Lymphocytes % (auto) 20.6 % (10.0-50.0); Mean Corpuscular Hemoglobin 35.5 pg (28.0-32.0); Mean Corpuscular Hgb Conc. 32.5 g/dL (32.0-36.0); Monocytes % (auto) 7.7 % (0.0-12.0); Neutrophils # (auto) 2.5 10 ^3/uL (1.6-8.6); Neutrophils % (auto) 70.5 % (37.0-80.0); Nucleated Red Blood Cells % 0.2 %; Platelet Count (auto) 112 10^3/uL (140-450); Red Blood Cells 3.04 10^6/uL (4.0-5.20)
[2020-02-07 07:56] LABS: Calcium 9.2 mg/dL (8.5-10.1); Potassium 3.9 mmol/L (3.5-5.1)
[2020-02-07 07:58] LABS: BUN/Creatinine Ratio 16.9
[2020-02-07] MEDS: LEVOTHYROXINE SODIUM 50 MCG TAB PO SCH (09:37)
[2020-02-07] MEDS: SODIUM CHLORIDE 0.9% 1,000 ML IV SCH ×2 (09:37→23:34)
[2020-02-07] MEDS: APIXABAN 2.5 MG TAB PO SCH ×2 (09:38→21:22)
[2020-02-07] MEDS: METOPROLOL TARTRATE 50 MG TAB PO SCH (09:38)
[2020-02-07] MEDS: FOLIC ACID 1 MG TAB PO SCH (09:38)
[2020-02-07] MEDS: ASPirin-EC 81 mg tab PO SCH (09:38)
[2020-02-07] MEDS: DOCUSATE SOD 100 MG CAP PO SCH (09:38)
[2020-02-07] MEDS: AMIODARONE HCL 200 MG TAB PO SCH (09:38)
[2020-02-07] MEDS: GABAPENTIN 300 MG CAP PO SCH ×2 (09:39→21:22)
[2020-02-07] MEDS: cefTRIAXone 1GM/50ML D5W 50 ML IV SCH (09:45)
[2020-02-07] MEDS: OMEPRAZOLE 20MG/10ML ORAL SUSP PO SCH ×2 (09:45→21:22)
[2020-02-07] MEDS ORDERED: PATIENTS OWN MEDICATION (Levothyroxine Sodium (Synthroid) 1 TAB) PO SCH (10:00)
[2020-02-07] MEDS ORDERED: PATIENTS OWN MEDICATION (Gabapentin 1,200 MG) PO SCH (10:00)
[2020-02-07] MEDS ORDERED: PATIENTS OWN MEDICATION (Omeprazole (Gnp Omeprazole) 20 MG) PO SCH (10:00)
[2020-02-07] MEDS ORDERED: FLUTICASONE-VILANTEROL 100-25mCg INHALER IN SCH (10:00)
[2020-02-07] MEDS: [UNRECOGNIZED DRUG - OTHER] PO SCH ×2 (10:00→21:21)
--- NOTE | 2020-02-07 11:30 | NUR ---
WOUND CARE NOTE: IN TO SEE PATIENT RECENTLY ADMITTED TO [facility] WITH DIAGNOSIS OF GENERAL WEAKNESS, UTI. CURRENT SHASHI SCORE IS 18. PATIENT RECENTLY BROUGHT TO [facility] FROM ER. BEDSIDE NURSE NOTICED SKIN INTEGRITY ISSUE TO SACRUM. PATIENT STATES THAT SHE SITS IN A CHAIR ALL DAY AND NIGHT. 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 WOUND IS NOT OPEN OR DRAINING. SURROUNDING SKIN IS RED, NON BLANCHABLE. NO OTHER SKIN INTEGRITY ISSUES SEEN. PATIENT EDUCATED IN WOUND CARE AND PRESSURE REDISTRIBUTION. PATIENT VERBALIZED UNDERSTANDING. RECOMMEND: FREQUENT TURN SCHEDULE Q 2 HOURS, PRN CONDITION PERMITS, WITH PRESSURE REDISTRIBUTION USING PILLOWS/WEDGES, BID/PRN APPLICATION WITH MOISTURE BARRIER CREAM, OPTIFOAM GENTLE SACRAL DRESSING TO COVER AND PROTECT, SKIN/WOUND CARE PLAN, CONTINUED MONITORING BY WOUND CARE TEAM. Addendum: 02/07/20 at 1714 by Andree Durant RN Amended: Links added.
[2020-02-07 13:00] VITALS: BP 133/84
[2020-02-07 17:00] VITALS: BP 152/86
[2020-02-07] MEDS: ALBUTEROL SULF 2.5 MG/0.5ML(0.5%) NEB SOLN NEB SCH ×3 (18:00→23:33)
--- NOTE | 2020-02-07 19:15 | NUR ---
Opening note Pt is A&Ox4. Respirations even and nonlabored on 2Lnc. POC discussed with patient. Bed in low locked position, call light within reach.
[2020-02-07] MEDS: BUDESONIDE (INHALATION) 0.5 MG/2 ML NEB NEB SCH ×2 (20:50→23:33)
--- NOTE | 2020-02-07 20:50 | NUR ---
RT NOTE PT WAS SEEN BY RT FOR HHN TX. PT STATES SHE DOES NOT WANT TO TAKE IT BEFORE BED BECAUSE IT WILL KEEP HER UP ALL NIGHT. HR 75, RR 16, BS CLEAR/DIMINISHED, POX ON ROOM AIR 85%, PLACED PT BACK ON HER 2L NASAL CANNULA AND SATS WERE 93$ BEFORE LEFT ROOM. CB BLACKWOOD NOTIFIED OF PT REFUSAL OF HHN BEFORE BED AND REQUEST FOR PAIN MEDICATION. PT NOTIFIED RN WILL COME WHEN HE DONE WITH ANOTHER PATIENT. Addendum: 02/07/20 at 2110 by Cleo Mercedes RT Amended: Links added.
[2020-02-07 21:13] VITALS: BP 152/86
[2020-02-07] MEDS: traZODone HCL 50 MG TAB PO SCH (21:21)
[2020-02-07] MEDS ORDERED: PATIENTS OWN MEDICATION (Trazodone Hcl 100 MG) PO SCH (22:00)
[2020-02-07] MEDS: HYDROcodone-ACET 5/325MG TAB PO PRN (22:19)
[2020-02-07 23:02] VITALS: BP 164/89
--- NOTE | 2020-02-07 23:17 | NUR ---
RT NOTE PT WAS SEEN BY RT FOR HHN TX. PT TOLERATES WELL VIA MASK .NO ADVERSE REACTION NOTED. CONT ORDERED Addendum: 02/07/20 at 2337 by Cleo Mercedes RT Amended: Links added.
[2020-02-08] MEDS: MORPHINE SULF INJ 2 MG/ML SYRINGE 1ML IV PRN (05:27)
[2020-02-08] MEDS: ALBUTEROL SULF 2.5 MG/0.5ML(0.5%) NEB SOLN NEB SCH ×3 (06:21→18:44)
[2020-02-08] MEDS: BUDESONIDE (INHALATION) 0.5 MG/2 ML NEB NEB SCH ×2 (06:22→18:44)
[2020-02-08] MEDS: LEVOTHYROXINE SODIUM 50 MCG TAB PO SCH (06:37)
[2020-02-08 06:38] LABS: Basophils # (auto) 0 10 ^3/uL (0-0.2); Eosinophils # (auto) 0 10 ^3/uL (0-0.8); Mean Corpuscular Hemoglobin 35.7 pg (28.0-32.0); Monocytes # (auto) 0.2 10 ^3/uL (0-1.3); Monocytes % (auto) 4.6 % (0.0-12.0)
[2020-02-08 06:41] LABS: Eosinophils % (auto) 0.1 % (0.0-7.0); Hematocrit 35.4 % (36.0-46.0); Hemoglobin 11.8 g/dL (12.2-16.2); Lymphocytes # (auto) 0.3 10 ^3/uL (0.4-5.4); Lymphocytes % (auto) 6.5 % (10.0-50.0); Mean Corpuscular Hgb Conc. 33.4 g/dL (32.0-36.0); Neutrophils % (auto) 87.8 % (37.0-80.0); Nucleated Red Blood Cells % 0.1 %; Platelet Count (auto) 118 10^3/uL (140-450); Red Blood Cells 3.31 10^6/uL (4.0-5.20); Red Cell Distribution Width 18.4 % (11.8-14.3); White Blood Cell 4.6 10^3/uL (4.4-10.8)
[2020-02-08 07:00] LABS: Potassium 4.3 mmol/L (3.5-5.1)
[2020-02-08 07:06] LABS: BUN/Creatinine Ratio 19.5; Calcium 9.2 mg/dL (8.5-10.1)
--- NOTE | 2020-02-08 07:36 | NUR ---
closing note pt resting in semi fowlers with HOB at 30 degrees. respirations are even and non labored on 3Lnc. Sitter at bedside. bed in low locked position, call light within reach.
--- NOTE | 2020-02-08 07:37 | NUR ---
Opening Shift Note: Assumed care of patient, awake and alert x3. No S/S of distress/SOB or pain. Bed in lowest locked position, side rails up x2, call light within reach. Sitter at bedside for patient safety. Patient instructed on POC and to call for assist PRN, will continue to monitor for changes Q1hr and PRN.
[2020-02-08 09:00] VITALS: BP 150/81
[2020-02-08] MEDS: OMEPRAZOLE 20MG/10ML ORAL SUSP PO SCH ×2 (10:00→22:06)
[2020-02-08] MEDS: ASPirin-EC 81 mg tab PO SCH (10:00)
[2020-02-08] MEDS: DOCUSATE SOD 100 MG CAP PO SCH (10:46)
[2020-02-08] MEDS: [UNRECOGNIZED DRUG - OTHER] PO SCH ×2 (10:46→22:06)
[2020-02-08] MEDS: METOPROLOL TARTRATE 50 MG TAB PO SCH (10:47)
[2020-02-08] MEDS: GABAPENTIN 300 MG CAP PO SCH ×2 (10:48→22:06)
[2020-02-08] MEDS: FOLIC ACID 1 MG TAB PO SCH (10:49)
[2020-02-08] MEDS: APIXABAN 2.5 MG TAB PO SCH ×2 (10:51→22:06)
[2020-02-08] MEDS: AMIODARONE HCL 200 MG TAB PO SCH (10:51)
[2020-02-08] MEDS: cefTRIAXone 1GM/50ML D5W 50 ML IV SCH (10:51)
[2020-02-08 13:00] VITALS: BP 125/86
--- NOTE | 2020-02-08 14:45 | NUR ---
Attempted PT eval, pt refused and asked me to return tomorrow. Will attempt again.
[2020-02-08] MEDS: SODIUM CHLORIDE 0.9% 1,000 ML IV SCH (16:14)
[2020-02-08 17:00] VITALS: BP 142/79
--- NOTE | 2020-02-08 18:51 | NUR ---
CLOSING NOTE: Patient resting in bed. No S/S of pain, distress or SOB at this time. Sitter at bedside for patient safety. Care endorsed to NOC RN
[2020-02-08] MEDS: traZODone HCL 50 MG TAB PO SCH (22:06)
[2020-02-08] MEDS: HYDROcodone-ACET 5/325MG TAB PO PRN (22:07)
[2020-02-09] MEDS: MORPHINE SULF INJ 2 MG/ML SYRINGE 1ML IV PRN ×3 (00:09→17:47)
--- NOTE | 2020-02-09 00:13 | NUR ---
RT NOTE PT REFUSED TX FOR SECOND TIME. STATES THAT IT ISNT SOMETHING SHE LIKES TO DO BEFORE SLEEPING OR DURING BEDTIME. PT UNDERSTANDS TO HAVE RT PAGED IF NEEDED. SITTER AT BEDSIDE KNOWS TO HAVE RT PAGED IF NEEDED. PT ON 3LPM NC. PT HAD NC OFF AND WAS SATING 84%. PT PLACED BACK ON NC AND CAME BACK UP TO 92%. PT DENIES ANY SOB, PT NOT SHOWING ANY SIGNS OF RESP DISTRESS.
[2020-02-09 05:19] VITALS: BP 165/91
--- NOTE | 2020-02-09 05:42 | NUR ---
JESSICA HOSPITALIST DUE TO PATIENT'S HIGH BP OF 165/91, HR - 76, RECHECKED AND BP ON THE LEFT ARM -184/110 AND ON THE RIGHT ARM IS 170/100. PATIENT IS RESTING, DENIES ANY PAIN. WAITING FOR CALL BACK. Addendum: 02/09/20 at 0641 by MARYJO WELSH RN RN Spoke with Dr. Adams and informed him that I gave the metoprolol dose early since BP is high, per Dr. Adams will recheck in an hour and treat as needed. IV fluids discontinued.
[2020-02-09 05:44] LABS: Basophils # (auto) 0 10 ^3/uL (0-0.2); Eosinophils # (auto) 0 10 ^3/uL (0-0.8); Lymphocytes # (auto) 0.3 10 ^3/uL (0.4-5.4); Neutrophils # (auto) 4.6 10 ^3/uL (1.6-8.6); Nucleated Red Blood Cells % 0.2 %; White Blood Cell 5.1 10^3/uL (4.4-10.8)
[2020-02-09 05:46] LABS: Basophils % (auto) 0.5 % (0.0-2.0); Hematocrit 38.4 % (36.0-46.0); Hemoglobin 12.8 g/dL (12.2-16.2); Lymphocytes % (auto) 5.8 % (10.0-50.0); Mean Corpuscular Hemoglobin 35.6 pg (28.0-32.0); Mean Corpuscular Hgb Conc. 33.2 g/dL (32.0-36.0); Mean Corpuscular Volume 107.2 fL (80.0-100.0); Monocytes # (auto) 0.2 10 ^3/uL (0-1.3); Neutrophils % (auto) 90.7 % (37.0-80.0); Platelet Count (auto) 141 10^3/uL (140-450); Red Blood Cells 3.58 10^6/uL (4.0-5.20); Red Cell Distribution Width 18.8 % (11.8-14.3)
[2020-02-09 05:51] LABS: BUN/Creatinine Ratio 20.5; Calcium 9.5 mg/dL (8.5-10.1); Potassium 4.5 mmol/L (3.5-5.1)
[2020-02-09] MEDS: METOPROLOL TARTRATE 50 MG TAB PO SCH (05:59)
[2020-02-09] MEDS: LEVOTHYROXINE SODIUM 50 MCG TAB PO SCH (06:05)
[2020-02-09 07:07] VITALS: BP 145/84
--- NOTE | 2020-02-09 07:10 | NUR ---
Opening Shift Note: Assumed care of patient. Patient asleep at this time. No S/S of distress/SOB or pain. Bed in lowest locked position, side rails up x 2, call light within reach. Sitter at bedside for patient safety. Patient will be instructed on POC and to call for assist PRN, will continue to monitor for changes Q1hr and PRN.
[2020-02-09] MEDS: BUDESONIDE (INHALATION) 0.5 MG/2 ML NEB NEB SCH ×2 (07:33→18:36)
[2020-02-09] MEDS: ALBUTEROL SULF 2.5 MG/0.5ML(0.5%) NEB SOLN NEB SCH ×4 (07:33→18:36)
[2020-02-09 09:00] VITALS: BP 143/92
[2020-02-09] MEDS: ASPirin-EC 81 mg tab PO SCH (10:00)
[2020-02-09] MEDS: FOLIC ACID 1 MG TAB PO SCH (10:12)
[2020-02-09] MEDS: DOCUSATE SOD 100 MG CAP PO SCH (10:12)
[2020-02-09] MEDS: cefTRIAXone 1GM/50ML D5W 50 ML IV SCH (10:12)
[2020-02-09] MEDS: APIXABAN 2.5 MG TAB PO SCH ×2 (10:12→22:04)
[2020-02-09] MEDS: OMEPRAZOLE 20MG/10ML ORAL SUSP PO SCH ×2 (10:12→22:04)
[2020-02-09] MEDS: GABAPENTIN 300 MG CAP PO SCH ×2 (10:12→22:04)
[2020-02-09] MEDS: AMIODARONE HCL 200 MG TAB PO SCH (10:13)
[2020-02-09] MEDS: [UNRECOGNIZED DRUG - OTHER] PO SCH ×2 (10:14→22:03)
[2020-02-09 13:00] VITALS: BP 126/61
[2020-02-09] MEDS ORDERED: guaiFENesin-DM 100/10mg/5ml SYR PO SCH (17:00)
[2020-02-09] MEDS ORDERED: guaiFENesin 200 MG/10 ML UD GT SCH (17:00)
--- NOTE | 2020-02-09 18:52 | NUR ---
CLOSING NOTE: Patient laying in bed. No S/S of distress at this time. Sitter at bedside for patient safety. Care endorsed
[2020-02-09 21:44] VITALS: BP 130/89
[2020-02-09] MEDS: guaiFENesin 200 MG/10 ML UD PO SCH ×2 (22:00→22:03)
[2020-02-09] MEDS: traZODone HCL 50 MG TAB PO SCH (22:04)
[2020-02-10] MEDS: ALBUTEROL SULF 2.5 MG/0.5ML(0.5%) NEB SOLN NEB SCH ×4 (00:40→18:56)
--- NOTE | 2020-02-10 03:05 | NUR ---
CONTINUATION OF CARE: Patient resting in bed. No S/S of pain, distress or SOB. Bed in lowest locked position, side rails up x 2, call light within reach. Bed alarm activated for patient safety. Will continue to educated patient of POC.
[2020-02-10] MEDS: MORPHINE SULF INJ 2 MG/ML SYRINGE 1ML IV PRN ×4 (03:38→23:40)
[2020-02-10 05:00] VITALS: BP 159/98
[2020-02-10 05:54] LABS: Basophils # (auto) 0 10 ^3/uL (0-0.2); Eosinophils # (auto) 0 10 ^3/uL (0-0.8); Hemoglobin 12.2 g/dL (12.2-16.2); Lymphocytes # (auto) 0.3 10 ^3/uL (0.4-5.4); Lymphocytes % (auto) 5.7 % (10.0-50.0); Monocytes # (auto) 0.2 10 ^3/uL (0-1.3); Neutrophils # (auto) 4.6 10 ^3/uL (1.6-8.6)
[2020-02-10 05:56] LABS: Basophils % (auto) 0.6 % (0.0-2.0); Hematocrit 37.9 % (36.0-46.0); Mean Corpuscular Hemoglobin 34.5 pg (28.0-32.0); Mean Corpuscular Hgb Conc. 32.1 g/dL (32.0-36.0); Mean Corpuscular Volume 107.3 fL (80.0-100.0); Monocytes % (auto) 3.3 % (0.0-12.0); Neutrophils % (auto) 90.4 % (37.0-80.0); Nucleated Red Blood Cells % 0.1 %; Platelet Count (auto) 140 10^3/uL (140-450); Red Blood Cells 3.53 10^6/uL (4.0-5.20); Red Cell Distribution Width 18.3 % (11.8-14.3)
[2020-02-10] MEDS: guaiFENesin 200 MG/10 ML UD PO SCH ×4 (06:07→21:19)
[2020-02-10] MEDS: LEVOTHYROXINE SODIUM 50 MCG TAB PO SCH (06:08)
[2020-02-10 06:18] LABS: Calcium 9.3 mg/dL (8.5-10.1); Potassium 4.5 mmol/L (3.5-5.1)
[2020-02-10 06:21] LABS: BUN/Creatinine Ratio 22.6
[2020-02-10] MEDS: BUDESONIDE (INHALATION) 0.5 MG/2 ML NEB NEB SCH ×2 (06:45→18:57)
[2020-02-10 08:46] VITALS: BP 160/79
[2020-02-10] MEDS: ASPirin-EC 81 mg tab PO SCH (10:00)
[2020-02-10] MEDS: cefTRIAXone 1GM/50ML D5W 50 ML IV SCH (10:03)
[2020-02-10] MEDS: FOLIC ACID 1 MG TAB PO SCH (10:04)
[2020-02-10] MEDS: DOCUSATE SOD 100 MG CAP PO SCH (10:04)
[2020-02-10] MEDS: [UNRECOGNIZED DRUG - OTHER] PO SCH ×2 (10:04→21:21)
[2020-02-10] MEDS: AMIODARONE HCL 200 MG TAB PO SCH (10:04)
[2020-02-10] MEDS: GABAPENTIN 300 MG CAP PO SCH (10:05)
[2020-02-10] MEDS: OMEPRAZOLE 20MG/10ML ORAL SUSP PO SCH ×2 (10:05→21:22)
[2020-02-10] MEDS: APIXABAN 2.5 MG TAB PO SCH ×2 (10:05→21:20)
[2020-02-10] MEDS: METOPROLOL TARTRATE 50 MG TAB PO SCH (10:05)
--- NOTE | 2020-02-10 12:40 | NUR ---
Nutrition Assessment Notes Please refer to link for full assessment notes. Est Energy needs: 7753-3532 kcals (17-20 kcal/kgBW) Est Protein needs: 60-66 gms/day (1.0-1.1 gm/kgBW) Will continue to monitor and reassess prn. Addendum: 02/10/20 at [address] Amended: Links added.
[2020-02-10 13:00] VITALS: BP 135/79
--- NOTE | 2020-02-10 13:09 | NUR ---
DR. FRANKLIN: Dr. Walker at bedside. Discussed POC with patient.
[2020-02-10 16:31] VITALS: BP 141/76
--- NOTE | 2020-02-10 18:52 | NUR ---
CLOSING NOTE: Patient laying in bed. No S/S of distress or SOB. sitter at bedside for patient safety. Care endorsed.
[2020-02-10] MEDS: HYDROcodone-ACET 5/325MG TAB PO PRN (19:53)
[2020-02-10 20:14] VITALS: BP 151/85
[2020-02-10] MEDS: GABAPENTIN 100 MG CAP PO SCH (21:19)
[2020-02-10] MEDS: traZODone HCL 50 MG TAB PO SCH (21:21)
[2020-02-11] MEDS: ALBUTEROL SULF 2.5 MG/0.5ML(0.5%) NEB SOLN NEB SCH ×5 (00:39→18:15)
[2020-02-11 03:34] VITALS: BP 151/85
[2020-02-11 05:30] VITALS: BP 151/80
[2020-02-11] MEDS: guaiFENesin 200 MG/10 ML UD PO SCH ×3 (06:06→17:00)
[2020-02-11] MEDS: GABAPENTIN 100 MG CAP PO SCH ×2 (06:10→16:16)
[2020-02-11] MEDS: LEVOTHYROXINE SODIUM 50 MCG TAB PO SCH (06:10)
[2020-02-11] MEDS: HYDROcodone-ACET 5/325MG TAB PO PRN (06:13)
[2020-02-11] MEDS: BUDESONIDE (INHALATION) 0.5 MG/2 ML NEB NEB SCH ×2 (06:43→18:15)
[2020-02-11 07:02] LABS: Basophils # (auto) 0 10 ^3/uL (0-0.2); Eosinophils # (auto) 0 10 ^3/uL (0-0.8); Eosinophils % (auto) 0.1 % (0.0-7.0); Lymphocytes # (auto) 0.3 10 ^3/uL (0.4-5.4); Monocytes # (auto) 0.2 10 ^3/uL (0-1.3)
[2020-02-11 07:04] LABS: Basophils % (auto) 0.1 % (0.0-2.0); Hematocrit 38.6 % (36.0-46.0); Hemoglobin 12.6 g/dL (12.2-16.2); Lymphocytes % (auto) 5.7 % (10.0-50.0); Mean Corpuscular Hemoglobin 35.2 pg (28.0-32.0); Mean Corpuscular Hgb Conc. 32.7 g/dL (32.0-36.0); Mean Corpuscular Volume 107.4 fL (80.0-100.0); Monocytes % (auto) 3.8 % (0.0-12.0); Neutrophils # (auto) 4.3 10 ^3/uL (1.6-8.6); Neutrophils % (auto) 90.3 % (37.0-80.0); Nucleated Red Blood Cells % 0.4 %; Platelet Count (auto) 137 10^3/uL (140-450); Red Blood Cells 3.59 10^6/uL (4.0-5.20); Red Cell Distribution Width 18.5 % (11.8-14.3); White Blood Cell 4.8 10^3/uL (4.4-10.8)
[2020-02-11 07:06] LABS: Potassium 4.7 mmol/L (3.5-5.1)
--- NOTE | 2020-02-11 07:07 | NUR ---
Opening Shift Note: Assumed care of patient, awake and alert. No S/S of distress/SOB or pain. Bed in lowest locked position, side rails up x 2, call light within reach. Sitter at bedside for patient safety. Patient instructed on POC and to call for assist PRN, will continue to monitor for changes Q1hr and PRN.
[2020-02-11 07:13] LABS: Calcium 9.2 mg/dL (8.5-10.1)
[2020-02-11 09:32] VITALS: BP 142/83
[2020-02-11] MEDS: ASPirin-EC 81 mg tab PO SCH (10:00)
[2020-02-11] MEDS: OMEPRAZOLE 20MG/10ML ORAL SUSP PO SCH (10:05)
[2020-02-11] MEDS: DOCUSATE SOD 100 MG CAP PO SCH (10:05)
[2020-02-11] MEDS: METOPROLOL TARTRATE 50 MG TAB PO SCH (10:06)
[2020-02-11] MEDS: AMIODARONE HCL 200 MG TAB PO SCH (10:06)
[2020-02-11] MEDS: FOLIC ACID 1 MG TAB PO SCH (10:06)
[2020-02-11] MEDS: APIXABAN 2.5 MG TAB PO SCH (10:06)
[2020-02-11] MEDS: cefTRIAXone 1GM/50ML D5W 50 ML IV SCH (10:07)
[2020-02-11] MEDS: [UNRECOGNIZED DRUG - OTHER] PO SCH (10:07)
--- NOTE | 2020-02-11 11:07 | NUR ---
IV insertion: IV access obtained, via clean sterile technique by inserting 20 gauge catheter at right ac after 2 attempts. IV secured properly. No trauma to site. Patient tolerated well.
[2020-02-11] MEDS ORDERED: HCTZ 25 MG TAB PO ONE (11:15)
[2020-02-11] MEDS ORDERED: cloNIDine HCL 0.1 MG TAB PO PRN (11:15)
--- NOTE | 2020-02-11 12:28 | NUR ---
Patient gave Tiara with social sciences lecturer to speak with caregiver.
[2020-02-11 12:48] VITALS: BP 159/93
[2020-02-11] MEDS ORDERED: ARTIFICIAL TEARS 15ml EACHEYE PRN (13:00)
--- NOTE | 2020-02-11 13:04 | NUR ---
CALLED AND SPOKE TO DAUGHTER REGARDING PLAN OF CARE AND DISCHARGE.
[2020-02-11 14:41] VITALS: BP 142/75
--- NOTE | 2020-02-11 17:15 | NUR ---
IV removal: both IVs DC'd with clean sterile technique, catheter fully intact. Pressure dressing applied to site. Patient tolerated well.
--- NOTE | 2020-02-11 17:24 | NUR ---
assessment re: ss consult Patient is a 89 year old female who is alert and answering appropriately. Patient does live home alone, but has assistance from her caregiver Heaven. Heaven cooks, cleans and takes patient to her appointments. Per patient Heaven comes in 5 days per week 1pm to 8pm and more if needed. Patient informed me she is on service with [facility] [place]. Patients PCP is Dr Gloria and Sorin. Patient informed me she has a fww, canes, wheelchair, and shower chair for home use. Patient has an advanced directive and her daughter Tamika is POA. Patient informed me she does feel safe at home. Patient will return home on discharge and resume [facility]. Patient verbalized understanding and agreed to discharge plan home. Per ss consult SNF. Patient is refusing SNF and wants to return home on discharge. Patients daughter Tamika will transport her home on discharge. Per consult resume home health with [facility] for physical therapy and cycling and home health aid. MD order has been sent to [facility] [place]. Per Dashawn service will resume tomorrow 02/12/2020. Patient has been notified. I have also spoken with caregiver Heaven about working with patient in between home health visits with physical therapy. Addendum: 02/11/20 at 1728 by Tiara HUFF Amended: Links added.
--- NOTE | 2020-02-11 17:34 | NUR ---
Discharge wound photo taken.
--- NOTE | 2020-02-11 18:15 | NUR ---
Respiratory note: SCHEDULED MED NEB TX NOT GIVEN. PT STATED, IT WAS NOT A GOOD TIME RIGHT NOW. SHE WAS UPSET BECAUSE SHE WAS WAITING TO BE DISCHARGED AND HER RIDE WAS NOT HERE YET. HR 76, RR 16, SPO2 96% ON 3L N/C.
--- NOTE | 2020-02-11 18:57 | NUR ---
Discharge instructions given as ordered. Encourage to follow up with PMD as instructed. All questions and concerns addressed. Patient verbalized understanding. Medication reconciliation form completed and copy given to patient. Both IV removed with catheter intact, pressure dressing applied. Patient taken to vehicle via wheelchair with all personal belongings, accompanied by staff and family member. No distress noted at time of departure.
[2020-02-12] MEDS ORDERED: HCTZ 25 MG TAB PO SCH (10:00)
== END 2020-02-11 18:57 | disposition home or self-care (01) | DRG 73 ==
LOC: EDBD 03:11 → ER 03:16 → OVERFLOW 03:17 → WEST WING 10:31
PROVIDERS: ADMIT Hospitalist; ATTEND Internal Medicine
DX: G62.9 Polyneuropathy, unspecified (principal); N17.0 Acute kidney failure with tubular necrosis; N39.0 Urinary tract infection, site not specified; I13.0 Hypertensive heart and chronic kidney disease with heart failure and stage 1 through stage 4 chronic kidney disease, or unspecified chronic kidney disease; I50.42 Chronic combined systolic (congestive) and diastolic (congestive) heart failure; D68.69 Other thrombophilia; J98.11 Atelectasis; D69.6 Thrombocytopenia, unspecified; D64.9 Anemia, unspecified; M54.5 Low back pain; F03.90 Unspecified dementia, unspecified severity, without behavioral disturbance, psychotic disturbance, mood disturbance, and anxiety; M19.90 Unspecified osteoarthritis, unspecified site; Z86.73 Personal history of transient ischemic attack (TIA), and cerebral infarction without residual deficits; Z88.8 Allergy status to other drugs, medicaments and biological substances; Z88.5 Allergy status to narcotic agent; Z79.899 Other long term (current) drug therapy; Z79.82 Long term (current) use of aspirin; Z95.0 Presence of cardiac pacemaker; Z82.61 Family history of arthritis; Z80.9 Family history of malignant neoplasm, unspecified; N18.9 Chronic kidney disease, unspecified
CPT/HCPCS: 36415; 70450; 71045; 80048; 80053; 80320; 81001; 82962; 83735; 84443; 84484; 85025; 85610; 85730; 87040; 87086; 93005; 94640; 97163; G0378; J0696

== ENCOUNTER 2020-06-15 13:26 | Inpatient (IN) | payer MEDICARE, OTHER ==
[~2020-06-15] VITALS: Ht 157.5 cm; Wt 54.3 kg
[~2020-06-15 13:26] MED LIST changes: -ASPI-404 PO; -BENZ100C97 PO; -FLUT100I IN; -LUTE6TAB2 PO; -POM NEB; -PRE1T PO
[2020-06-15 14:35] LABS: Basophils # (auto) 0 10 ^3/uL (0-0.2); Eosinophils # (auto) 0 10 ^3/uL (0-0.8); Monocytes # (auto) 0.4 10 ^3/uL (0-1.3); Nucleated Red Blood Cells % 0.1 %; Red Cell Distribution Width 16.2 % (11.8-14.3)
[2020-06-15 14:38] LABS: Basophils % (auto) 0.6 % (0.0-2.0); Eosinophils % (auto) 0.5 % (0.0-7.0); Hematocrit 33.9 % (36.0-46.0); Hemoglobin 11.2 g/dL (12.2-16.2); Lymphocytes # (auto) 0.9 10 ^3/uL (0.4-5.4); Lymphocytes % (auto) 12.9 % (10.0-50.0); Mean Corpuscular Hemoglobin 35.4 pg (28.0-32.0); Mean Corpuscular Volume 107.2 fL (80.0-100.0); Monocytes % (auto) 5.4 % (0.0-12.0); Neutrophils # (auto) 5.4 10 ^3/uL (1.6-8.6); Neutrophils % (auto) 80.6 % (37.0-80.0); Platelet Count (auto) 258 10^3/uL (140-450); Red Blood Cells 3.16 10^6/uL (4.0-5.20); White Blood Cell 6.6 10^3/uL (4.4-10.8)
[2020-06-15 14:45] LABS: Urine WBC None Seen /hpf (0 - 5)
[2020-06-15 14:55] LABS: Albumin 2.5 g/dL (3.4-5.0); BUN/Creatinine Ratio 25.7; Calcium 10.4 mg/dL (8.5-10.1); Potassium 4.4 mmol/L (3.5-5.1)
[2020-06-15 14:58] LABS: Bilirubin, Total 0.5 mg/dL (0.2-1.0); Total Protein 6.5 g/dL (6.4-8.2)
[2020-06-15 15:07] LABS: Urine Bacteria NONE SEEN /hpf (None Seen); Urine Blood Negative /uL (Negative); Urine Hyaline Cast FEW /lpf (0 - 2); Urine Mucus FEW (None Seen); Urine Specific Gravity 1.015 (1.001-1.035)
[2020-06-15] MEDS ORDERED: cefTRIAXone 1GM/50ML D5W 50 ML IV ONE (16:30)
[2020-06-15] MEDS ORDERED: FUROSEMIDE 20 MG/2 ML VIAL IV ONE (16:30)
[2020-06-15] MEDS ORDERED: DOCUSATE SOD 100 MG CAP PO PRN (18:30)
[2020-06-15] MEDS ORDERED: NITROGLYCERIN 0.4 MG SL TAB SL PRN (18:30)
[2020-06-15] MEDS ORDERED: ONDANSETRON HCL 4 MG/2 ML VIAL IV PRN (18:30)
[2020-06-15] MEDS ORDERED: SODIUM CHLORIDE 0.9% 1,000 ML IV SCH (18:30)
[2020-06-15] MEDS ORDERED: MORPHINE SULF INJ 2 MG/ML SYRINGE 1ML IV PRN ×2 (18:30)
[2020-06-15 19:15] VITALS: BP 138/60
--- NOTE | 2020-06-15 21:15 | NUR ---
TELE ADMIT Patient arrived to unit via stretcher and was safely transferred onto bed. Patient A&O X's 4 with no s/s of distress and reports some pain to left shoulder with movement. Patient receiving 4L O2 via NC and saturations is 97%. Respirations are even and unlabored. Educated patient on POC and to use call light when in need of assistance. Oriented patient to unit (call light/lights/tv/bathroom/policies) Patient verbalized understanding. Bed is in lowest/locked position with side rails up X's 2 and call light is within reach of patient. Bed alarm is on for safety. IV to right AC intact and patent. Will continue care.
[2020-06-15] MEDS: APIXABAN 2.5 MG TAB PO SCH (21:31)
[2020-06-15 22:10] VITALS: BP 138/60
--- NOTE | 2020-06-15 22:56 | NUR ---
SPOKE WITH FAMILY Daughter, Tamika. password was verified. Updated on POC. All questions were answered.
[2020-06-15] MEDS ORDERED: TEMA30CA PO (23:26)
[2020-06-15] MEDS ORDERED: GUAI600T23 PO (23:26)
[2020-06-15] MEDS ORDERED: FURO1TAB31 PO (23:26)
[2020-06-16] VITALS (8 sets, daily range): BP systolic 107–155; BP diastolic 60–76
--- NOTE | 2020-06-16 01:11 | NUR ---
PATIENT TRANSFERRED TO ROOM 275A. patient transferred with all patient belongings. Patient A&O X's 4. Patient transferred via gurney and receiving 4L O2. No s/s of distress noted. Full report given to RNRagini.
--- NOTE | 2020-06-16 01:12 | NUR ---
Assumed care of patient: Report received from Cecilia RN, patient taken to room 275-A via bed. Patient is awake and alert. No S/S of distress/SOB noted. Instructed on POC and to call for assist PRN. Bed is in lowest locked position with bed rails up x2 and call light is within reach, bed alarm is armed.
[2020-06-16] MEDS: HYDROcodone-ACET 5/325MG TAB PO PRN ×2 (01:37→13:17)
[2020-06-16 07:49] LABS: Eosinophils # (auto) 0 10 ^3/uL (0-0.8); Hemoglobin 10.3 g/dL (12.2-16.2); Lymphocytes # (auto) 0.8 10 ^3/uL (0.4-5.4); Monocytes # (auto) 0.3 10 ^3/uL (0-1.3); Neutrophils # (auto) 4.5 10 ^3/uL (1.6-8.6); White Blood Cell 5.7 10^3/uL (4.4-10.8)
[2020-06-16 07:51] LABS: Basophils # (auto) 0 10 ^3/uL (0-0.2); Basophils % (auto) 0.7 % (0.0-2.0); Eosinophils % (auto) 0.6 % (0.0-7.0); Hematocrit 30.8 % (36.0-46.0); Lymphocytes % (auto) 13.7 % (10.0-50.0); Mean Corpuscular Hemoglobin 35.4 pg (28.0-32.0); Mean Corpuscular Hgb Conc. 33.4 g/dL (32.0-36.0); Mean Corpuscular Volume 106.1 fL (80.0-100.0); Platelet Count (auto) 238 10^3/uL (140-450)
[2020-06-16 08:02] LABS: Albumin 2.4 g/dL (3.4-5.0); Calcium 9.9 mg/dL (8.5-10.1); Potassium 3.9 mmol/L (3.5-5.1)
[2020-06-16 08:06] LABS: BUN/Creatinine Ratio 27.1; Bilirubin, Total 0.4 mg/dL (0.2-1.0); Total Protein 6.4 g/dL (6.4-8.2)
--- NOTE | 2020-06-16 08:20 | NUR ---
Opening Shift Note Assumed care of patient, awake, alert lying with the head of the bed lowered in supine position. No S/S of distress/SOB. Patient complains of pain in the left shoulder. Educated on the scheduled pain medications and the patient agreed to wait until due. Patient verbalized her desire to sleep and requested morning medications at this time. Ten o clock medications were given. Patient was positioned on her right side. Sacrum area is closed, dry and blanchable to touch. Instructed on POC and to call for assist PRN. Patient verbalized understanding. Bed is in lowest position and the call light is within reach of the patient. Will continue to monitor for changes Q1hr and PRN.
[2020-06-16] MEDS: FAMOTIDINE 20 MG TAB PO SCH (09:05)
[2020-06-16] MEDS: METOPROLOL TARTRATE 50 MG TAB PO SCH (09:05)
[2020-06-16] MEDS: AMIODARONE HCL 200 MG TAB PO SCH (09:05)
[2020-06-16] MEDS: APIXABAN 2.5 MG TAB PO SCH ×2 (09:05→21:14)
[2020-06-16] MEDS ORDERED: levoFLOXacin 500MG 100 ML IV SCH (10:00)
[2020-06-16] MEDS ORDERED: APIXABAN 2.5 MG TAB PO SCH (10:00)
--- NOTE | 2020-06-16 10:58 | NUR ---
WOUND CARE NOTE: Wound care in to see patient per wound care request regarding "Redness to sacrum" that are noted present upon admission. Patient is 89 years old female with admitting diagnosis of Metabolic Encephalopathy. Patient is resting in bed in Rm. 275A. Patient is awake, alert and able to verbalize needs. She's in no stated pain at this time and she appears to be in no pain using Armas Hernandes Faces Pain Scale. Patient is able to assist in turning and repositioning. Her Alvin score is 15. Skin assessment done with the assistance of nurse aide at bedside. No open wound noted, however intact raised collagen scar tissue noted on patient's distal medial sacrum with red blanchable surrounding skin. Patient feels the urge to go bathroom, assisted nurse aide to place patient on bed chau. Patient tolerated well, repositioned patient for comfort, given call light and reminded to call for assistance when done. Advised CB Degroot to take photograph of patient's sacrum for reference and to apply Barrier cream to sacral, buttocks as preventative. CB Degroot and nurse aide are aware that patient is on bedpan. RECOMMENDATION: Nursing to continue with BID/PRN cleaning and application of Barrier cream to sacral/buttocks as preventative, frequent turning and repositioning schedule as condition permits, redistribute pressure points with pillows, frequent hakeem care/check, keep clean and dry,elevate heels on pillows, continue monitoring by wound care while patient is hospitalized. Addendum: 06/16/20 at 1340 by Simran Mason RN Amended: Links added.
--- NOTE | 2020-06-16 11:25 | NUR ---
Dr. Cadena at bedside Dr. Cadena at bedside discussing the plan of care with the patient. Patient verbalized her pain in the shoulder and Dr. Cadena ordered a head and spine CT. Patient verbalized understanding. All questions and concerns were addressed at this time. Will continue to monitor.
--- NOTE | 2020-06-16 11:40 | NUR ---
Patient to radiology Radiology transported patient off the floor via wheelchair.
--- NOTE | 2020-06-16 12:10 | NUR ---
Patient returned to room Patient returned to the unit from radiology. Patient is confused and irritable complaining of being in the wrong room. Refuses any help from staff. Will continue to monitor changes in LOC.
[2020-06-16] MEDS: SODIUM CHLORIDE 0.9% 1,000 ML IV SCH ×2 (12:36→22:15)
--- NOTE | 2020-06-16 17:45 | NUR ---
Spoke with daughter Daughter called, password confirmed and she was updated on the patient's status. Daughter states her mother is confused and is wanting to come home. Family member states she needs at least 24 hour notice for her to be able to product picker her mother. Daughter was notified that there are no D/C orders at this time. She stated she would call cnc machinist 2nd shift to check on her mother.
--- NOTE | 2020-06-16 20:03 | NUR ---
Hospitalist paged: Patient requesting something to help her sleep. Hospitalist paged at this time. Waiting for call back.
--- NOTE | 2020-06-16 20:31 | NUR ---
Hospitalist called back: Hospitalist Tom called back, updated about patient and patients request for sleep medication. New orders received. To place orders.
--- NOTE | 2020-06-16 21:01 | NUR ---
Patient agitated: Patient initially refusing vitals, agitated stating "What are you doing I dont want that crap on me!" Educated patient that she needs to have vital signs taken to give medication. Patient stated "You better bring me my medicine now before i kick your butt up between your shoulders!" Patient allowed this RN to take her vitals.
[2020-06-16] MEDS: TEMAZEPAM 15 MG CAP PO PRN (21:08)
--- NOTE | 2020-06-16 21:15 | NUR ---
Patient refused Eliquis: Educated patient about the need to take eliquis as scheduled. Patient still refused stating "I know what eliquis is but you arent giving me that crap!" Patient still refusing to take medication at this time.
--- NOTE | 2020-06-16 22:45 | NUR ---
Patient confused: Patient confused and ripped out IV and found trying to get out of bed. IV sight placed with gauze and secured with coband. Patients gown and blankets changed and tolerated well. Patient currently oriented to place and situation. Reoriented the patient and new IV placed to the left forearm 22 gauge, patient tolerated well. Sitter now is at the bedside for safety.
--- NOTE | 2020-06-16 23:10 | NUR ---
Spoke with Family: Family member Tamika called asking for update regarding the patient. After password verified updated Daughter Tamika about the patients confusion and sitter being placed at the bedside for safety. All questions answered and Daughter verbalized understanding. Instructed to call if they have any more questions.
[2020-06-17] MEDS: HYDROcodone-ACET 5/325MG TAB PO PRN (01:03)
--- NOTE | 2020-06-17 05:03 | NUR ---
Patient refusing vitals: Patient refusing vital signs to be taken this morning per sitter. Patient is aggressive and combative and doesn't want to be touched. Patient continued to refuse vital signs despite education and reorientation.
--- NOTE | 2020-06-17 05:20 | NUR ---
Report given: Report given to Camille RN, all questions answered. To transfer patient to room 217B.
--- NOTE | 2020-06-17 05:35 | NUR ---
Patient transferred to room 217 B with all of patients belongings via bed. Sitter at bedside for safety.
--- NOTE | 2020-06-17 05:40 | NUR ---
Opening Shift Note Received report from Barbra VIVAR. Assumed care of patient, awake and alert x3. Sitter at bedside. No S/S of distress/SOB or pain. Instructed on POC and to call for assist PRN. Fall precaution measures in place, will continue to monitor for changes Q1hr and PRN.
[2020-06-17] MEDS: SODIUM CHLORIDE 0.9% 1,000 ML IV SCH ×2 (08:15→13:41)
[2020-06-17] MEDS: FAMOTIDINE 20 MG TAB PO SCH (09:29)
[2020-06-17] MEDS: APIXABAN 2.5 MG TAB PO SCH ×2 (09:29→21:40)
[2020-06-17] MEDS: METOPROLOL TARTRATE 50 MG TAB PO SCH (09:29)
[2020-06-17] MEDS: AMIODARONE HCL 200 MG TAB PO SCH (09:29)
--- NOTE | 2020-06-17 09:50 | NUR ---
pt seen by Dr. Cadena, made aware pt is still having productive cough with crackles on posterior lung. Dr. Cadena said to continue IV fluids, and follow up social sciences instructor for DC Planning.
--- NOTE | 2020-06-17 10:31 | NUR ---
Spoke with social economist Vesta, she said Tiara Johnson will follow up on the pt.
--- NOTE | 2020-06-17 14:04 | NUR ---
assessment re: ss consult Patient is a 89 year old female who is alert and answering appropriately. Patient does live home alone, but has assistance from her caregivers Heaven and Karina. Patients caregivers cook, cleans and takes patient to her appointments. Patients caregivers are with her 20 hours per day. Patient informed me she is on service with [employer]. Patients PCP is Dr Jordan and Sorin. Patient informed me she has a fww, canes, wheelchair, bedside commode and shower chair for home use. Patient has an advanced directive and her daughter Tamika is POA. Patient informed me she does feel safe at home. Patient will return home on discharge and resume [employer]. Patient verbalized understanding and agreed to discharge plan home. Addendum: 06/17/20 at 1407 by Tiara HUFF Amended: Links added.
[2020-06-17 15:30] VITALS: BP 142/68
--- NOTE | 2020-06-17 19:55 | NUR ---
Opening Shift Note Assumed care of patient, awake and alert A/O x 2. No S/S of distress/SOB or pain. Sitter at beside bed lowered and locked call light and bedside table in reach. Instructed on POC and to call for assist PRN, will continue to monitor for changes Q1hr and PRN.
[2020-06-17] MEDS: ACETAMINOPHEN 500 MG TAB PO PRN (21:41)
[2020-06-17 22:00] VITALS: BP 162/76
[2020-06-17] MEDS: TEMAZEPAM 15 MG CAP PO PRN (23:11)
[2020-06-18] MEDS: SODIUM CHLORIDE 0.9% 1,000 ML IV SCH ×2 (04:21→14:15)
[2020-06-18 05:12] VITALS: BP 140/68
[2020-06-18] MEDS: HYDROcodone-ACET 5/325MG TAB PO PRN (07:56)
[2020-06-18 09:00] VITALS: BP 136/68
[2020-06-18] MEDS: APIXABAN 2.5 MG TAB PO SCH (09:32)
[2020-06-18] MEDS: AMIODARONE HCL 200 MG TAB PO SCH (09:33)
[2020-06-18] MEDS: FAMOTIDINE 20 MG TAB PO SCH (09:33)
[2020-06-18] MEDS: METOPROLOL TARTRATE 50 MG TAB PO SCH (09:33)
--- NOTE | 2020-06-18 11:30 | NUR ---
Patient urinated clear yellow urine.
[2020-06-18 11:33] VITALS: BP 147/78
[2020-06-18 13:00] VITALS: BP 141/81
--- NOTE | 2020-06-18 13:04 | NUR ---
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
[2020-06-18] MEDS: ACETAMINOPHEN 500 MG TAB PO PRN (14:33)
[2020-06-18 17:00] VITALS: BP 141/75
--- NOTE | 2020-06-18 18:46 | NUR ---
Discharge instructions given as ordered. Encourage to follow up with PMD (Follow up with [facility]. )as instructed. All questions and concerns addressed. Patient verbalized understanding. Medication reconciliation form completed and copy given to patient. IV removed with catheter intact, pressure dressing applied, villalobos catheter removed. Telemetry unit returned to ICU. Patient taken to vehicle via wheelchair with all personal belongings, accompanied by staff and family member. No distress noted at time of departure.
== END 2020-06-18 18:31 | disposition hospice, home (50) | DRG 70 ==
LOC: EDBD 13:26 → ER 13:26 → TELE 13:27 → TELE-WESTW 21:11 → TELE-EAST 23:39 → TELE-WESTW 06-16 01:20 → TELE-CENTR 06-17 05:24
PROVIDERS: ADMIT Nurse Practitioner Acute Care; ATTEND Family Medicine
DX: G93.41 Metabolic encephalopathy (principal); N17.0 Acute kidney failure with tubular necrosis; J18.9 Pneumonia, unspecified organism; E44.0 Moderate protein-calorie malnutrition; D68.59 Other primary thrombophilia; I13.0 Hypertensive heart and chronic kidney disease with heart failure and stage 1 through stage 4 chronic kidney disease, or unspecified chronic kidney disease; E86.0 Dehydration; N18.30 Chronic kidney disease, stage 3 unspecified; I48.0 Paroxysmal atrial fibrillation; E03.9 Hypothyroidism, unspecified; I35.0 Nonrheumatic aortic (valve) stenosis; E83.52 Hypercalcemia; Z20.828 Contact with and (suspected) exposure to other viral communicable diseases; I50.9 Heart failure, unspecified; Z79.01 Long term (current) use of anticoagulants; Z88.5 Allergy status to narcotic agent; Z88.8 Allergy status to other drugs, medicaments and biological substances; M54.12 Radiculopathy, cervical region; G30.9 Alzheimer's disease, unspecified; F02.80 Dementia in other diseases classified elsewhere, unspecified severity, without behavioral disturbance, psychotic disturbance, mood disturbance, and anxiety; Z82.61 Family history of arthritis; Z80.9 Family history of malignant neoplasm, unspecified
CPT/HCPCS: 36415; 51702; 70450; 71045; 72125; 80053; 81001; 82728; 83605; 83880; 84443; 84484; 85025; 87040; 87426; 93005; 93306; 96361; 96365; 96375; G0378; J0696; J1956; J2405